=== PATIENT | female | born 2000 | race Caucasian/White ===

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

== ENCOUNTER 2022-07-27 09:43 | Inpatient (IN) ==
[2022-07-27 10:30] LABS: Basophils # (auto) 0.03 K/uL (0-0.2); Basophils % (auto) 0.4 %; Eosinophils # (auto) 0.05 K/uL (0-0.50); Eosinophils % (auto) 0.6 %; Hematocrit (blood only) 33.5 % (34.1-44.9); Hemoglobin 11.6 g/dl (12.0-16.0); Immature Granulocytes # (auto) 0.05 K/uL (0.00-0.02); Immature Granulocytes % (auto) 0.6 %; Lymphocytes # (auto) 2.06 K/uL (1.2-3.4); Lymphocytes % (auto) 24.5 %; Mean Corpuscular Hemoglobin 29.7 pg (25.0-34.0); Mean Corpuscular Hgb Conc 34.6 g/dL (32.0-36.0); Mean Corpuscular Volume 85.9 fL (80.0-100.0); Mean Platelet Volume 10.8 fL (9.4-12.3); Monocytes # (auto) 0.64 K/uL (0.24-0.82); Monocytes % (auto) 7.6 %; Neutrophils # (auto) 5.59 K/uL (1.4-6.5); Neutrophils % (auto) 66.3 %; Platelet Count 258 K/uL (130-400); RDW Coefficient of Variation 12.7 % (11.5-14.5); RDW Standard Deviation 39.2 fL (36.4-46.3); White Blood Count 8.42 K/ul (4.8-10.8)
[2022-07-27 10:52] LABS: Albumin Globulin Ratio 1.1 (0.9-2); BUN Creatinine Ratio 22.5 (10-20); Bilirubin,Total 0.3 mg/dl (0.2-1.0); Calcium 8.4 mg/dl (8.5-10.1); Creatinine Clr Calc Pharmacy 113.2 ml/min; Est GFR (African American) 138.2 ml/min; Est GFR (Non-African American) 119.2 ml/min; Globulin 2.7 gm/dl (2.5-4.0); Total Protein 5.7 gm/dl (6.0-8.3)
[2022-07-27 11:10] LABS: Protein Creatinine Ratio Urine 0.6 (0-0.2); Total Protein Urine Random 40.8 mg/dl (0-11.9)
[2022-07-27] MEDS ORDERED: OXYTOCIN 30 UNITS/500 ML BAG IV PRN ×3 (11:31→20:00)
[2022-07-27] MEDS ORDERED: LIDOCAINE 1% LOCAL 20 ML VIAL INFIL PRN (11:31)
--- NOTE | 2022-07-27 12:03 | History & Physical Report ---
Date of Service July 27, 2022 Assessment & Plan (1) Encounter for induction of labor: Plan: Patient is a 22 yo at 37+2 WGA presenting to labor and delivery originally for BP monitoring and lab work. Upon review of labs, BP, and urine studies, induction of labor was chosen as the best way to proceed. CBC, CMP WNL; significant protein:Cr ratio at 0.6 Blood type: O+, GBS neg, rubella non-immune Plan to start oxytocin and rupture membranes later if necessary Proceed with labor and vaginal delivery (2) Preeclampsia: History of Present Illness Chief Complaint: HTN, concern for PE, induction of labor Primary Care Provider: Joon Damon MD Patient is a 22 yo female currently at 37+2WGA with an ARA as determined by US #1 who is here for HTN, 2+ proteinuria, and headache. She presented to L&D for BP monitoring and PIH labs. Her was complicated by GDM on insulin therapy. No timeable contractions; movement present; denies fluid loss; denies bloody show External FHT and external uterine monitors used; category I tracing; normal FHT variability Had regular appointments with OB. Labs: (01/04/2022) Blood type: O+ Antibody screen: neg Hgb: 11.6 (today) Hct: 33.5% (today) WBC: 8.42 (today) Plt: 258 (today) Rubella: non immune VDRL/RPR: neg Gonorrhea: neg Chlamydia: neg HIV: neg HbSAg: neg GBS: neg Other screens: cf/sma; negative, mln cfdna; low risk, mln Allergies Allergy/AdvReac Type Severity Reaction Status Date / Time No Known Allergies Allergy Verified 07/27/22 09:30 Home Medications Medication Instructions Recorded Confirmed Type prenat.vits,en,yux-ntew-zruch 1 tab PO DAILY 12/12/21 07/27/22 History acetone (urine) test (Ketone Urine #50 ea 05/24/22 07/27/22 Rx Test strips) blood sugar diagnostic (OneTouch #150 ea 05/24/22 07/27/22 Rx Verio test strips) blood-glucose meter (OneTouch #1 ea 05/24/22 07/27/22 Rx Verio Reflect Meter) lancets 33 gauge (OneTouch Delica #150 ea 05/24/22 07/27/22 Rx Lancets) insulin NPH isoph U-100 human 100 5 unit (0.05 mL) subcut QPM #15 mL 06/04/22 07/27/22 Rx unit/mL (3 mL) subcutaneous pen (Novolin N Flexpen) insulin aspart U-100 100 unit/mL See Rx Instructions subcut 06/04/22 07/27/22 Rx (3 mL) subcutaneous pen (Novolog .COMPLEX #15 mL Flexpen U-100 Insulin aspart) pen needle, diabetic 32 gauge x #100 ea 06/04/22 07/27/22 Rx 32" (BD Ultra-Fine Meg Pen Needle) Patient History Medical History Chronic compartment syndrome of lower extremity PONV (postoperative nausea and vomiting) Surgical History H/O wisdom tooth extraction History of arthroscopy of right knee History of fasciotomy bilateral legs History of tonsillectomy and adenoidectomy S/P lateral meniscal repair S/P tonsillectomy Family History Other No family history of adverse response to anesthesia Social History (Updated 07/27/22 @ 10:13 by Elvi George, JACKI) Smoking Status: Never smoker Second Hand Exposure: No; Hx Alcohol Use: No Hx Substance Use: No Preferred Language: Polish Communication Ability: Effective Outdoor Education Teacher Required: No Beliefs That Will Affect Care: None marital status: marital status details: Mitchel (27) [phone] Current Living Situation: Spouse Current Living Situation Comment: lives with spouse, 2 cats, 1 dog, spouse to change litter. 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 Other Information That Helps Us Care for You: No Feels Safe at Home: Yes Safety Concerns: Feels Safe At This Time Assistive Devices: None Review of Systems Denies fever, chills, sweats. Denies SOB, difficulty breathing, chest pain, palpitations, and chest pressure. Denies breast pain. Denies dysuria. Endorses headache but denies changes in vision. Physical Exam Physical Exam: General: Alert and oriented. No acute distress CV: Regular rate and rhythm. No murmurs. Respiratory: CTA bilaterally. No rhonchi, wheezes, or crackles. No increased work of breathing. Abdomen: Gravid; Soft, nontender upon palpation Pelvic: Dilated [_] cm; Effacement [_]; Station [_] per [_] Lower extremities: 2+ bilateral LE edema. No deep calf pain. Chuck's negative bilaterally. Results & Data ([facility]) Vital Signs (Past 12 Hours) Vital Signs Temp Pulse Resp BP 07/27/22 10:13 37 C 16 07/27/22 11:26 69 07/27/22 11:26 125/82 07/27/22 11:11 68 07/27/22 11:11 138/87 07/27/22 10:56 64 07/27/22 10:56 140/87 07/27/22 10:30 18 07/27/22 10:30 18 07/27/22 10:01 62 138/89 Resident Activity Tracking Resident Involvement: Resident Care Provided Care Provided: OB Delivery
--- NOTE | 2022-07-27 12:22 | History & Physical Report ---
Date of Service July 27, 2022 Assessment & Plan (1) Preeclampsia: (2) Encounter for induction of labor: (3) Insulin controlled gestational diabetes mellitus (GDM) during : Plan casper bulb placed for cervical ripening. fetus category one. Will monitor blood sugars hourly and treat based on results, insulin as indicated. pitocin when indicated. Likely arom at some point. anticipate . Monitor s/s of pet. No indication for mag at this point. Admission and Anticipated Discharge Date Admission Date: July 27, 2022 History of Present Illness Chief Complaint: elevated blood pressue, shields Primary Care Provider: Joon Damon MD patient is a 22yowf with iup at 37 2/7 weeks who presents to labor and delivery from the office with an elevated blood pressures. She has had borderline BPs in the office over the last week, 130/90s, isolated 140/80. Was observed in labor and delivery last week and labs normal and pressures better. Documented intermittent shields. Has not been dipping protein. Today notes a shields since midnight, not getting better, notes 01/05. Notes continued swelling but not worsening. notes some sensitivity to light, but no other vision changes. no ruq pain. Had ultrasound today and baby measuring 7# +/-16 oz. Has been fairly well controlled gdm on insulin. and Delivery Plans Rubella non immune *ppx MMR Flu shot given 04/25/22 SB GDM on insulin--started beginning of May. *Wkly NSTs @32wks and Twice wkly @36wks *Serial growth US @28wks *Deliver by [facility] Covid in September, vaccine. OB Labs: Blood Type O Positive 01/04/22 Antibody Screen NEGATIVE 01/04/22 Hemoglobin 11.6 g/dl (12.0-16.0) L 07/27/22 Hematocrit 33.5 % (34.1-44.9) L 07/27/22 Mean Corpuscular Volume 85.9 fL (80.0-100.0) 07/27/22 Platelet Count 258 K/uL (130-400) 07/27/22 Rubella IgG Antibody Non Immune (Immune) L 01/04/22 Rapid Plasma Reagin Nonreactive (Nonreactive) 01/04/22 Hepatitis B Surface Antigen. NON-REACTIVE (NON-REACTIVE) 01/04/22 Hepatitis C Antibody (EIA) NON-REACTIVE (NON-REACTIVE) 01/04/22 HIV (1&2) Ag and Ab Confirmation NON-REACTIVE (NON-REACTIVE) 01/04/22 Glucose 1 Hour 50 gm Load 158 mg/dl (70-130) H 03/01/22 Maternal Serum Alpha Fetoprotein 40.8 ng/mL 03/01/22 OB Optional Labs: Chlamydia trachomatis RNA NOT DETECTED (NOT DETECTED) 01/04/22 Neisseria gonorrhoeae RNA NOT DETECTED (NOT DETECTED) 01/04/22 Alpha Fetoprotein Triple Screen SEE NOTE 03/01/22 Labs Reviewed: cf/sma-negative--mln cfdna-low risk--mln gbs neg Allergies Allergy/AdvReac Type Severity Reaction Status Date / Time No Known Allergies Allergy Verified 07/27/22 09:30 Home Medications Medication Instructions Recorded Confirmed Type prenat.vits,en,mip-lzic-ugugu 1 tab PO DAILY 12/12/21 07/27/22 History acetone (urine) test (Ketone Urine #50 ea 05/24/22 07/27/22 Rx Test strips) blood sugar diagnostic (OneTouch #150 ea 05/24/22 07/27/22 Rx Verio test strips) blood-glucose meter (OneTouch #1 ea 05/24/22 07/27/22 Rx Verio Reflect Meter) lancets 33 gauge (OneTouch Delica #150 ea 05/24/22 07/27/22 Rx Lancets) insulin NPH isoph U-100 human 100 5 unit (0.05 mL) subcut QPM #15 mL 06/04/22 07/27/22 Rx unit/mL (3 mL) subcutaneous pen (Novolin N Flexpen) insulin aspart U-100 100 unit/mL See Rx Instructions subcut 06/04/22 07/27/22 Rx (3 mL) subcutaneous pen (Novolog .COMPLEX #15 mL Flexpen U-100 Insulin aspart) pen needle, diabetic 32 gauge x #100 ea 06/04/22 07/27/22 Rx 5/32" (BD Ultra-Fine Meg Pen Needle) Patient History Medical History Chronic compartment syndrome of lower extremity PONV (postoperative nausea and vomiting) Surgical History H/O wisdom tooth extraction History of arthroscopy of right knee History of fasciotomy bilateral legs History of tonsillectomy and adenoidectomy S/P lateral meniscal repair S/P tonsillectomy Family History Grandmother (Maternal) Breast cancer Mother S/P hysterectomy Other No family history of adverse response to anesthesia Social History Smoking Status: Never smoker Second Hand Exposure: No; Hx Alcohol Use: No Hx Substance Use: No Preferred Language: Maori Communication Ability: Effective Mercantile Reporter Required: No Beliefs That Will Affect Care: None marital status: marital status details: Mitchle (27) [phone] Current Living Situation: Spouse Current Living Situation Comment: lives with spouse, 2 cats, 1 dog, spouse to change litter. 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 speculum placed, casper threaded though cervix, balloon filled with 30cc sterile saline, taped to leg toco--lewis efm--130s with mod variability, accels to 160s, no decels Results & Data ([facility]) Vital Signs (Past 12 Hours) Vital Signs Temp Pulse Resp BP 07/27/22 10:13 37 C 16 07/27/22 11:26 69 07/27/22 11:26 125/82 07/27/22 11:11 68 07/27/22 11:11 138/87 07/27/22 10:56 64 07/27/22 10:56 140/87 07/27/22 10:30 18 07/27/22 10:30 18 07/27/22 10:01 62 138/89 Coding Level of Care Code None Diagnoses Preeclampsia O14.90 Encounter for induction of labor Z34.90 Insulin controlled gestational diabetes mellitus (GDM) during O24.414
[2022-07-27] MEDS: ACETAMINOPHEN 325 MG TAB PO PRN (16:41)
--- NOTE | 2022-07-27 19:21 | Labor Progress Brief Note ---
Date of Service July 27, 2022 Subjective Blood pressures continue to be good. BUTLER about the same, not better/not worse. casper bulb still in. Assessment & Plan (1) Preeclampsia: (2) Encounter for induction of labor: (3) Insulin controlled gestational diabetes mellitus (GDM) during : Plan Patient ate dinner and showered and will now start pit. Pulled on casper a couple of times without success. fetus category one. no worsening s/s of pet. Admission and Anticipated Discharge Date Admission Date: July 27, 2022 Physical Exam Physical Exam: cx--deferred toco--q4-5min efm--130s with mod variability, accels to 150s, no decels Results & Data ([facility]) Vital Signs (Past 12 Hours) Vital Signs Temp Pulse Resp BP 07/27/22 10:13 37 C 16 07/27/22 19:00 37.1 C 07/27/22 19:03 60 07/27/22 19:03 133/78 07/27/22 18:00 18 07/27/22 18:00 18 07/27/22 18:00 65 07/27/22 18:00 126/82 07/27/22 17:00 18 07/27/22 17:00 18 07/27/22 16:30 18 07/27/22 16:30 18 07/27/22 16:00 18 07/27/22 16:00 18 07/27/22 16:06 60 07/27/22 16:06 129/83 07/27/22 15:00 18 07/27/22 15:00 18 07/27/22 15:07 64 07/27/22 15:07 133/80 07/27/22 14:00 18 07/27/22 14:00 36.7 C 18 07/27/22 14:08 66 07/27/22 14:08 131/80 07/27/22 13:08 65 07/27/22 13:08 141/87 H 07/27/22 12:30 18 07/27/22 12:30 18 07/27/22 12:51 68 07/27/22 12:51 129/80 07/27/22 12:00 18 07/27/22 12:00 18 07/27/22 11:00 18 07/27/22 11:00 18 07/27/22 11:30 18 07/27/22 11:30 18 07/27/22 12:35 69 07/27/22 12:35 124/64 07/27/22 11:26 69 07/27/22 11:26 125/82 07/27/22 11:11 68 07/27/22 11:11 138/87 07/27/22 10:56 64 07/27/22 10:56 140/87 07/27/22 10:30 18 07/27/22 10:30 18 07/27/22 10:01 62 138/89 Coding Level of Care Code None Diagnoses Preeclampsia O14.90 Encounter for induction of labor Z34.90 Insulin controlled gestational diabetes mellitus (GDM) during O24.414
[2022-07-27] MEDS: LACTATED RINGER'S 1,000 ML IV PRN (20:04)
[2022-07-28] MEDS ORDERED: LIDOCAINE 2%/EPINEPHRINE 1:200,000 20 ML SDV ONE ×2 (00:21→17:11)
[2022-07-28] MEDS ORDERED: BUPIVACAINE 0.25% 30 ML VIAL ONE ×2 (00:21→09:50)
[2022-07-28] MEDS ORDERED: ePHEDrine sulfate 50 MG/ML AMP ONE (00:21)
[2022-07-28] MEDS ORDERED: fentaNYL 2MCG/ML ROPIVACAINE 1.25MG/ML 100 ML BAG EPI ONE (00:21)
[2022-07-28] MEDS ORDERED: fentaNYL citrate 100 MCG/2 ML VIAL ONE ×2 (00:21→15:25)
[2022-07-28] MEDS: LACTATED RINGER'S 1,000 ML IV PRN ×4 (00:31→15:01)
[2022-07-28] MEDS ORDERED: NALOXONE HCL 0.4 MG/1 ML VIAL/CARP IV PRN ×2 (00:37→17:27)
[2022-07-28] MEDS ORDERED: fentaNYL 2MCG/ML ROPIVACAINE 1.25MG/ML 100 ML BAG EPI PRN (00:37)
[2022-07-28] MEDS ORDERED: NALBUPHINE HCL INJ 10 MG/ML AMP IV PRN ×2 (00:37→17:27)
[2022-07-28] MEDS ORDERED: diphenhydrAMINE 50 MG/ML VIAL IV PRN ×2 (00:37→17:27)
[2022-07-28] MEDS ORDERED: NALOXONE HCL 1 MG in SODIUM CHLORIDE 0.9% 1000ML 1,000 ML IV PRN ×2 (00:37→17:27)
[2022-07-28] MEDS ORDERED: ONDANSETRON INJ 2 MG/ML 2 ML VIAL IV PRN ×3 (00:37→18:21)
[2022-07-28] MEDS ORDERED: ePHEDrine sulfate 50 MG/ML AMP IV PRN ×2 (00:37→17:27)
--- NOTE | 2022-07-28 00:42 | Anesthesiology Consultation ---
Date of Service July 28, 2022 Assessment & Plan Chart Review Chart Review: Patient NOT seen in Pre Admission Testing and Acceptable Risk for Labor Epidural Consults Requested none ASA ASA3 Proposed Anesthesia Anesthesia Type: Labor Epidural and CSE Risk / Benefits Reviewed With: PT / POA / Parent / Guardian, Accepts Plan and Informed Consent Obtained History Height/Weight Height: 5 ft Weight: 78.471 kg Allergies Allergy/AdvReac Type Severity Reaction Status Date / Time No Known Allergies Allergy Verified 07/27/22 09:30 Medications Home Medications Medication Instructions Recorded Confirmed Last Taken prenat.vits,en,[id number] 1 tab PO DAILY 12/12/21 07/27/22 07/26/22 acetone (urine) test (Ketone Urine #50 ea 05/24/22 07/27/22 Unknown Test strips) blood sugar diagnostic (OneTouch #150 ea 05/24/22 07/27/22 Unknown Verio test strips) blood-glucose meter (OneTouch #1 ea 05/24/22 07/27/22 Unknown Verio Reflect Meter) lancets 33 gauge (OneTouch Delica #150 ea 05/24/22 07/27/22 Unknown Lancets) insulin NPH isoph U-100 human 100 5 unit (0.05 mL) subcut QPM #15 mL 06/04/22 07/27/22 07/26/22 unit/mL (3 mL) subcutaneous pen (Novolin N Flexpen) insulin aspart U-100 100 unit/mL See Rx Instructions subcut 06/04/22 07/27/22 07/26/22 (3 mL) subcutaneous pen (Novolog .COMPLEX #15 mL Flexpen U-100 Insulin aspart) pen needle, diabetic 32 gauge x #100 ea 06/04/22 07/27/22 Unknown 32" (BD Ultra-Fine Meg Pen Needle) Active Medications Generic Name Dose Route Start Last Admin Trade Name Freq PRN Reason Stop Dose Admin Acetaminophen 650 mg 07/27/22 16:18 07/27/22 16:41 Acetaminophen 325 Mg Tab PO 08/26/22 16:17 650 mg Q4H PRN Administration Headache Lactated Ringer's 1,000 mls @ 125 mls/hr 07/27/22 11:31 07/28/22 00:31 Lr IV 07/29/22 11:30 999 mls/hr .Q8H PRN Administration L&D Protocol Protocol Oxytocin 30 units in 500 mls @ 8 mls/hr 07/27/22 20:00 07/28/22 00:00 Pitocin IV 07/29/22 19:59 0.48 units/hr .Q24H PRN 8 mls/hr Labor Induction/Augmentation Titration Protocol 0.48 UNITS/HR NPO Date Last Intake of Fluids: 07/27/22 Time Last Intake of Fluids: 23:00 Date Last Intake of Solids: 07/27/22 Time Last Intake of Solids: 13:00 Past Medical History Medical History Chronic compartment syndrome of lower extremity Insulin controlled gestational diabetes mellitus (GDM) during PONV (postoperative nausea and vomiting) Preeclampsia Exercise / Class Metabolic Activity II 4-5 Yardwork/Stairs/Walk up hill Past Family History Family History Grandmother (Maternal) Breast cancer Mother S/P hysterectomy Other No family history of adverse response to anesthesia Past Surgical History Surgical History H/O wisdom tooth extraction History of arthroscopy of right knee History of fasciotomy bilateral legs History of tonsillectomy and adenoidectomy S/P lateral meniscal repair S/P tonsillectomy Past Anesthesia History No Hx of Anesthesia Complications and No Family Hx of Anesthesia Complications History of PONV No Hx of PONV and No Hx of Motion Sickness Social History Smoking Status: Never smoker Hx Alcohol Use: No alcohol intake frequency: a few times a week Hx Substance Use: No substance use type: does not use Review of Systems no chest pain or sob Physical Exam Vital Signs Last Vital Signs Temp 36.8 C 07/27/22 23:00 Pulse 56 L 07/28/22 00:38 Resp 18 07/27/22 23:00 BP 142/84 H 07/28/22 00:02 Pulse Ox 96 07/28/22 00:38 ENMT Mouth: no TMJ abnormality Thyromental Distance: > or= 3.5 Finger Breadths Mallampati Class: II Neck normal visual inspection Respiratory normal respiratory effort Auscultation: lungs clear to auscultation bilaterally Cardiovascular Rate/Rhythm: regular rate and regular rhythm Musculoskeletal Spine: normal cervical ROM Neurologic moves all extremities Psychiatric Orientation: alert and oriented x 3 Testing Laboratory Results 07/27/22 10:12 07/27/22 10:12 07/28/22 07/27/22 07/27/22 00:00 23:04 22:03 POC Glucose 82 89 83 07/27/22 07/27/22 07/27/22 21:03 20:04 19:01 POC Glucose 83 77 82 07/27/22 07/27/22 07/27/22 18:02 17:07 16:05 POC Glucose 89 92 98 07/27/22 07/27/22 07/27/22 15:05 14:03 13:06 POC Glucose 94 117 H 68 L*
--- NOTE | 2022-07-28 02:00 | Labor Progress Brief Note ---
Date of Service July 28, 2022 Subjective comfortable with epidural Assessment & Plan (1) Preeclampsia: (2) Insulin controlled gestational diabetes mellitus (GDM) during : Plan continue current management. fetus category one. anticipate . shields resolved. Admission and Anticipated Discharge Date Admission Date: July 27, 2022 Physical Exam Physical Exam: cx--4/50/-2 arom toco--q2-4min, pit at 8 efm--120s wtih mod variability accels to 160s, no decels Results & Data ([facility]) Vital Signs (Past 12 Hours) Vital Signs Temp Pulse Resp BP Pulse Ox 07/28/22 01:53 94 07/28/22 01:53 63 07/28/22 01:53 60 116/69 07/28/22 01:48 61 94 07/28/22 01:30 18 07/28/22 01:30 18 07/28/22 01:47 59 L 128/73 07/28/22 01:43 95 07/28/22 01:43 58 L 07/28/22 01:43 60 126/62 07/28/22 01:38 66 97 07/28/22 01:37 66 119/64 07/28/22 01:33 62 95 07/28/22 01:32 58 L 123/71 07/28/22 01:29 55 L 126/75 07/28/22 01:28 54 L 96 07/28/22 01:23 64 93 07/28/22 01:22 63 123/61 07/28/22 01:15 18 07/28/22 01:15 18 07/28/22 01:18 56 L 127/73 96 07/28/22 01:13 63 91 07/28/22 01:14 60 120/59 L 07/28/22 01:08 57 L 92 07/28/22 01:06 65 123/62 87 L 07/28/22 01:05 18 07/28/22 01:05 18 07/28/22 01:03 61 140/72 86 L 07/28/22 01:01 57 L 93 07/28/22 01:00 54 L 127/77 07/28/22 00:58 54 L 126/73 95 07/28/22 00:55 67 62 L 07/28/22 00:56 67 119/72 07/28/22 00:53 92 07/28/22 00:53 62 07/28/22 00:53 62 129/78 07/28/22 00:48 79 51 L 07/28/22 00:43 100 07/28/22 00:43 57 L 07/28/22 00:43 59 L 94 07/28/22 00:38 56 L 96 07/28/22 00:33 58 L 100 07/28/22 00:28 52 L 100 07/28/22 00:23 57 L 100 07/28/22 00:18 59 L 100 07/28/22 00:13 63 98 07/28/22 00:02 55 L 142/84 H 07/27/22 23:00 18 07/27/22 23:00 36.8 C 18 07/27/22 23:05 63 07/27/22 23:05 122/74 07/27/22 22:06 58 L 07/27/22 22:06 129/82 07/27/22 21:05 60 07/27/22 21:05 127/84 07/27/22 20:09 59 L 07/27/22 20:09 133/82 07/27/22 19:00 37.1 C 07/27/22 19:00 37.1 C 07/27/22 19:03 60 07/27/22 19:03 133/78 07/27/22 18:00 18 07/27/22 18:00 18 07/27/22 18:00 65 07/27/22 18:00 126/82 07/27/22 17:00 18 07/27/22 17:00 18 07/27/22 16:30 18 07/27/22 16:30 18 07/27/22 16:00 18 07/27/22 16:00 18 07/27/22 16:06 60 07/27/22 16:06 129/83 07/27/22 15:00 18 07/27/22 15:00 18 07/27/22 15:07 64 07/27/22 15:07 133/80 07/27/22 14:00 18 07/27/22 14:00 36.7 C 18 07/27/22 14:08 66 07/27/22 14:08 131/80 Coding Level of Care Code None Diagnoses Preeclampsia O14.90 Insulin controlled gestational diabetes mellitus (GDM) during O24.414
--- NOTE | 2022-07-28 07:28 | Labor Progress Brief Note ---
Date of Service July 28, 2022 Subjective comfortable with epidural. low grade shields 4/10 Assessment & Plan (1) Preeclampsia: (2) Insulin controlled gestational diabetes mellitus (GDM) during : (3) Encounter for induction of labor: Plan iupc placed to help monitor contractions, appear to not be adequate. continue current management. fetus category one. Sugars maintained between 70-120. Admission and Anticipated Discharge Date Admission Date: July 27, 2022 Physical Exam Physical Exam: cx--/-2 toco--difficult tracing, dysfunctional patten at this point. iupc placed, pit at 13 efm--120s with mod variability, accels to 150s, +scalp stim, ?early with some contractions. Results & Data ([facility]) Vital Signs (Past 12 Hours) Vital Signs Temp Pulse Resp BP Pulse Ox 07/28/22 07:23 79 99 07/28/22 07:22 75 121/89 07/28/22 07:18 88 94 07/28/22 07:13 89 98 07/28/22 07:08 114 H 135/84 98 07/28/22 07:03 92 H 96 07/28/22 07:00 18 07/28/22 07:00 18 07/28/22 06:58 68 96 07/28/22 06:53 97 07/28/22 06:53 68 07/28/22 06:53 68 124/79 07/28/22 06:48 74 96 07/28/22 06:43 69 96 07/28/22 06:38 67 97 07/28/22 06:39 71 119/76 07/28/22 06:33 64 97 07/28/22 06:30 18 07/28/22 06:30 18 07/28/22 06:28 76 97 07/28/22 06:23 61 99 07/28/22 06:22 62 114/73 07/28/22 06:18 69 97 07/28/22 06:13 75 97 07/28/22 06:00 18 07/28/22 06:00 36.8 C 18 07/28/22 06:08 65 99 07/28/22 06:03 71 99 07/28/22 05:58 66 97 07/28/22 05:53 65 145/86 H 98 07/28/22 05:48 61 95 07/28/22 05:43 58 L 95 07/28/22 05:38 55 L 141/67 H 95 07/28/22 05:30 18 07/28/22 05:30 18 07/28/22 05:33 59 L 96 07/28/22 05:28 58 L 95 07/28/22 05:23 95 07/28/22 05:23 53 L 07/28/22 05:23 55 L 144/66 H 07/28/22 05:18 58 L 95 07/28/22 05:13 55 L 95 07/28/22 05:08 58 L 95 07/28/22 05:07 58 L 120/70 07/28/22 05:03 57 L 96 07/28/22 05:00 16 07/28/22 05:00 16 07/28/22 04:58 55 L 96 07/28/22 04:53 96 07/28/22 04:53 60 07/28/22 04:53 52 L 125/74 07/28/22 04:48 57 L 96 07/28/22 04:43 65 98 07/28/22 04:30 18 07/28/22 04:30 18 07/28/22 04:38 61 97 07/28/22 04:37 59 L 118/76 07/28/22 04:33 61 99 07/28/22 04:28 60 98 07/28/22 04:23 60 139/71 95 07/28/22 04:18 62 98 07/28/22 04:13 68 98 07/28/22 04:08 36.8 C 54 L 18 95 07/28/22 03:00 18 07/28/22 03:00 18 07/28/22 04:07 52 L 105/58 L 07/28/22 04:03 53 L 95 07/28/22 03:58 58 L 96 07/28/22 03:53 95 07/28/22 03:53 54 L 07/28/22 03:53 51 L 103/54 L 07/28/22 03:48 60 94 07/28/22 03:43 63 93 07/28/22 03:38 62 98/55 L 94 07/28/22 03:33 62 95 07/28/22 03:28 57 L 97 07/28/22 03:23 54 L 96 07/28/22 03:24 59 L 102/55 L 07/28/22 03:18 57 L 95 07/28/22 03:13 56 L 93 07/28/22 03:08 57 L 95 07/28/22 03:07 58 L 106/58 L 07/28/22 03:03 57 L 95 07/28/22 03:02 60 104/58 L 07/28/22 02:58 57 L 100/52 L 95 07/28/22 02:53 62 98 07/28/22 02:52 57 L 103/55 L 07/28/22 02:48 54 L 96 07/28/22 02:49 54 L 102/55 L 07/28/22 02:43 55 L 95 07/28/22 02:42 56 L 103/55 L 07/28/22 02:38 59 L 96 07/28/22 02:37 67 102/55 L 07/28/22 02:30 18 07/28/22 02:30 18 07/28/22 02:30 18 07/28/22 02:30 18 07/28/22 02:33 59 L 100/59 L 95 07/28/22 02:28 55 L 97 07/28/22 02:29 55 L 105/55 L 07/28/22 02:23 96 07/28/22 02:23 64 07/28/22 02:23 60 109/59 L 07/28/22 02:18 96 07/28/22 02:18 60 07/28/22 02:18 58 L 116/57 L 07/28/22 02:13 66 97 07/28/22 02:12 57 L 104/57 L 07/28/22 02:08 60 104/52 L 98 07/28/22 02:00 18 07/28/22 02:00 36.7 C 18 07/28/22 02:03 77 96 07/28/22 02:02 68 114/86 07/28/22 01:58 67 124/58 L 96 07/28/22 01:53 94 07/28/22 01:53 63 07/28/22 01:53 60 116/69 07/28/22 01:48 61 94 07/28/22 01:30 18 07/28/22 01:30 18 07/28/22 01:47 59 L 128/73 07/28/22 01:43 95 07/28/22 01:43 58 L 07/28/22 01:43 60 126/62 07/28/22 01:38 66 97 07/28/22 01:37 66 119/64 07/28/22 01:33 62 95 07/28/22 01:32 58 L 123/71 07/28/22 01:29 55 L 126/75 07/28/22 01:28 54 L 96 07/28/22 01:23 64 93 07/28/22 01:22 63 123/61 07/28/22 01:15 18 07/28/22 01:15 18 07/28/22 01:18 56 L 127/73 96 07/28/22 01:13 63 91 07/28/22 01:14 60 120/59 L 07/28/22 01:08 57 L 92 07/28/22 01:06 65 123/62 87 L 07/28/22 01:05 18 07/28/22 01:05 18 07/28/22 01:03 61 140/72 86 L 07/28/22 01:01 57 L 93 07/28/22 01:00 54 L 127/77 07/28/22 00:58 54 L 126/73 95 07/28/22 00:55 67 62 L 07/28/22 00:56 67 119/72 07/28/22 00:53 92 07/28/22 00:53 62 07/28/22 00:53 62 129/78 07/28/22 00:48 79 51 L 07/28/22 00:43 100 07/28/22 00:43 57 L 07/28/22 00:43 59 L 94 07/28/22 00:38 56 L 96 07/28/22 00:33 58 L 100 07/28/22 00:28 52 L 100 07/28/22 00:23 57 L 100 07/28/22 00:18 59 L 100 07/28/22 00:13 63 98 07/28/22 00:02 55 L 142/84 H 07/27/22 23:00 18 07/27/22 23:00 36.8 C 18 07/27/22 23:05 63 07/27/22 23:05 122/74 07/27/22 22:06 58 L 07/27/22 22:06 129/82 07/27/22 21:05 60 07/27/22 21:05 127/84 07/27/22 20:09 59 L 07/27/22 20:09 133/82 Coding Level of Care Code None Diagnoses Preeclampsia O14.90 Insulin controlled gestational diabetes mellitus (GDM) during O24.414 Encounter for induction of labor Z34.90
[2022-07-28] MEDS: ACETAMINOPHEN 325 MG TAB PO PRN (07:46)
[2022-07-28] MEDS ORDERED: SODIUM CHLORIDE 0.9% INJ 10 ML VIAL ONE (09:51)
--- NOTE | 2022-07-28 10:35 | Labor Progress Brief Note ---
Date of Service July 28, 2022 Subjective Comfortable with epidural. FHT Cat 1 [place] Q 2, adequate MVUs SVE /-1 Continue pitocin, continue labor. Assessment & Plan Admission and Anticipated Discharge Date Admission Date: July 27, 2022 Results & Data ([facility]) Vital Signs (Past 12 Hours) Vital Signs Temp Pulse Resp BP Pulse Ox 07/28/22 10:28 70 97 07/28/22 10:23 81 93 07/28/22 10:22 72 109/63 07/28/22 10:18 71 96 07/28/22 10:13 69 94 07/28/22 10:08 71 94 07/28/22 10:07 68 103/59 L 07/28/22 10:03 65 94 07/28/22 09:58 59 L 94 07/28/22 09:53 71 94 07/28/22 09:52 64 111/61 07/28/22 09:48 64 96 07/28/22 09:43 64 97 07/28/22 09:38 95 07/28/22 09:38 61 07/28/22 09:38 59 L 109/57 L 07/28/22 09:33 62 96 07/28/22 09:28 63 96 07/28/22 09:23 63 96 07/28/22 09:24 74 118/69 07/28/22 09:18 69 98 07/28/22 09:13 65 99 07/28/22 09:08 36.9 C 60 20 139/74 97 07/28/22 09:03 67 97 07/28/22 08:58 64 97 07/28/22 08:53 96 07/28/22 08:53 62 07/28/22 08:53 57 L 20 131/80 07/28/22 08:48 67 98 07/28/22 08:43 62 96 07/28/22 08:38 59 L 139/83 96 07/28/22 08:33 58 L 98 07/28/22 08:28 61 97 07/28/22 08:23 67 98 07/28/22 08:22 63 20 123/67 07/28/22 08:18 67 97 07/28/22 08:13 62 97 07/28/22 08:08 60 117/60 97 07/28/22 08:03 60 96 07/28/22 07:00 18 07/28/22 07:00 36.8 C 18 07/28/22 07:58 67 96 07/28/22 07:56 71 20 120/79 07/28/22 07:53 65 97 07/28/22 07:48 70 97 07/28/22 07:43 67 96 07/28/22 07:38 70 97 07/28/22 07:33 67 96 07/28/22 07:28 91 H 97 07/28/22 07:23 79 99 07/28/22 07:22 75 20 121/89 07/28/22 07:18 88 94 07/28/22 07:13 89 98 07/28/22 07:08 114 H 135/84 98 07/28/22 07:03 92 H 96 07/28/22 07:00 18 07/28/22 07:00 18 07/28/22 06:58 68 96 07/28/22 06:53 97 07/28/22 06:53 68 07/28/22 06:53 68 124/79 07/28/22 06:48 74 96 07/28/22 06:43 69 96 07/28/22 06:38 67 97 07/28/22 06:39 71 119/76 07/28/22 06:33 64 97 07/28/22 06:30 18 07/28/22 06:30 18 07/28/22 06:28 76 97 07/28/22 06:23 61 99 07/28/22 06:22 62 114/73 07/28/22 06:18 69 97 07/28/22 06:13 75 97 07/28/22 06:00 18 07/28/22 06:00 36.8 C 18 07/28/22 06:08 65 99 07/28/22 06:03 71 99 07/28/22 05:58 66 97 07/28/22 05:53 65 145/86 H 98 07/28/22 05:48 61 95 07/28/22 05:43 58 L 95 07/28/22 05:38 55 L 141/67 H 95 07/28/22 05:30 18 07/28/22 05:30 18 07/28/22 05:33 59 L 96 07/28/22 05:28 58 L 95 07/28/22 05:23 95 07/28/22 05:23 53 L 07/28/22 05:23 55 L 144/66 H 07/28/22 05:18 58 L 95 07/28/22 05:13 55 L 95 07/28/22 05:08 58 L 95 07/28/22 05:07 58 L 120/70 07/28/22 05:03 57 L 96 07/28/22 05:00 16 07/28/22 05:00 16 07/28/22 04:58 55 L 96 07/28/22 04:53 96 07/28/22 04:53 60 07/28/22 04:53 52 L 125/74 07/28/22 04:48 57 L 96 07/28/22 04:43 65 98 07/28/22 04:30 18 07/28/22 04:30 18 07/28/22 04:38 61 97 07/28/22 04:37 59 L 118/76 07/28/22 04:33 61 99 07/28/22 04:28 60 98 07/28/22 04:23 60 139/71 95 07/28/22 04:18 62 98 07/28/22 04:13 68 98 07/28/22 04:08 36.8 C 54 L 18 95 07/28/22 03:00 18 07/28/22 03:00 18 07/28/22 04:07 52 L 105/58 L 07/28/22 04:03 53 L 95 07/28/22 03:58 58 L 96 07/28/22 03:53 95 07/28/22 03:53 54 L 07/28/22 03:53 51 L 103/54 L 07/28/22 03:48 60 94 07/28/22 03:43 63 93 07/28/22 03:38 62 98/55 L 94 07/28/22 03:33 62 95 07/28/22 03:28 57 L 97 07/28/22 03:23 54 L 96 07/28/22 03:24 59 L 102/55 L 07/28/22 03:18 57 L 95 07/28/22 03:13 56 L 93 07/28/22 03:08 57 L 95 07/28/22 03:07 58 L 106/58 L 07/28/22 03:03 57 L 95 07/28/22 03:02 60 104/58 L 07/28/22 02:58 57 L 100/52 L 95 07/28/22 02:53 62 98 07/28/22 02:52 57 L 103/55 L 07/28/22 02:48 54 L 96 07/28/22 02:49 54 L 102/55 L 07/28/22 02:43 55 L 95 07/28/22 02:42 56 L 103/55 L 07/28/22 02:38 59 L 96 07/28/22 02:37 67 102/55 L 07/28/22 02:30 18 07/28/22 02:30 18 07/28/22 02:30 18 07/28/22 02:30 18 07/28/22 02:33 59 L 100/59 L 95 07/28/22 02:28 55 L 97 07/28/22 02:29 55 L 105/55 L 07/28/22 02:23 96 07/28/22 02:23 64 07/28/22 02:23 60 109/59 L 07/28/22 02:18 96 07/28/22 02:18 60 07/28/22 02:18 58 L 116/57 L 07/28/22 02:13 66 97 07/28/22 02:12 57 L 104/57 L 07/28/22 02:08 60 104/52 L 98 07/28/22 02:00 18 07/28/22 02:00 36.7 C 18 07/28/22 02:03 77 96 07/28/22 02:02 68 114/86 07/28/22 01:58 67 124/58 L 96 07/28/22 01:53 94 07/28/22 01:53 63 07/28/22 01:53 60 116/69 07/28/22 01:48 61 94 07/28/22 01:30 18 07/28/22 01:30 18 07/28/22 01:47 59 L 128/73 07/28/22 01:43 95 07/28/22 01:43 58 L 07/28/22 01:43 60 126/62 07/28/22 01:38 66 97 07/28/22 01:37 66 119/64 07/28/22 01:33 62 95 07/28/22 01:32 58 L 123/71 07/28/22 01:29 55 L 126/75 07/28/22 01:28 54 L 96 07/28/22 01:23 64 93 07/28/22 01:22 63 123/61 07/28/22 01:15 18 07/28/22 01:15 18 07/28/22 01:18 56 L 127/73 96 07/28/22 01:13 63 91 07/28/22 01:14 60 120/59 L 07/28/22 01:08 57 L 92 07/28/22 01:06 65 123/62 87 L 07/28/22 01:05 18 07/28/22 01:05 18 07/28/22 01:03 61 140/72 86 L 07/28/22 01:01 57 L 93 07/28/22 01:00 54 L 127/77 07/28/22 00:58 54 L 126/73 95 07/28/22 00:55 67 62 L 07/28/22 00:56 67 119/72 07/28/22 00:53 92 07/28/22 00:53 62 07/28/22 00:53 62 129/78 07/28/22 00:48 79 51 L 07/28/22 00:43 100 07/28/22 00:43 57 L 07/28/22 00:43 59 L 94 07/28/22 00:38 56 L 96 07/28/22 00:33 58 L 100 07/28/22 00:28 52 L 100 07/28/22 00:23 57 L 100 07/28/22 00:18 59 L 100 07/28/22 00:13 63 98 07/28/22 00:02 55 L 142/84 H 07/27/22 23:00 18 07/27/22 23:00 36.8 C 18 07/27/22 23:05 63 07/27/22 23:05 122/74 Coding Level of Care Code None
--- NOTE | 2022-07-28 12:46 | Labor Progress Brief Note ---
Date of Service July 28, 2022 Subjective Feeling more pressure with ctx. FHT Cat 2, variable decels with ctx SVE 6/100/0 Will position change, reduce pitocin, monitor FHT. Assessment & Plan Admission and Anticipated Discharge Date Admission Date: July 27, 2022 Results & Data ([facility]) Vital Signs (Past 12 Hours) Vital Signs Temp Pulse Resp BP Pulse Ox 07/28/22 12:43 69 98 07/28/22 12:38 69 126/61 97 07/28/22 12:33 74 97 07/28/22 12:28 64 95 07/28/22 12:24 68 121/69 07/28/22 12:23 73 95 07/28/22 12:18 62 98 07/28/22 12:13 68 97 07/28/22 12:08 98 07/28/22 12:08 65 07/28/22 12:08 63 147/78 H 07/28/22 12:03 65 98 07/28/22 11:58 63 96 07/28/22 11:55 72 129/80 07/28/22 11:53 69 95 07/28/22 11:52 68 126/74 07/28/22 11:48 59 L 96 07/28/22 11:43 60 96 07/28/22 11:38 63 126/72 95 07/28/22 11:33 68 95 07/28/22 11:22 20 07/28/22 11:22 36.9 C 20 07/28/22 11:28 64 96 07/28/22 11:23 72 115/67 97 07/28/22 11:18 75 96 07/28/22 11:13 64 96 07/28/22 11:08 64 116/59 L 96 07/28/22 11:03 75 96 07/28/22 10:58 68 95 07/28/22 10:53 71 96 07/28/22 10:52 76 18 121/55 L 07/28/22 10:48 75 96 07/28/22 10:43 73 95 07/28/22 10:38 99 07/28/22 10:38 74 07/28/22 10:38 73 120/58 L 07/28/22 10:33 79 99 07/28/22 10:28 70 97 07/28/22 10:23 81 93 07/28/22 10:22 72 20 109/63 07/28/22 10:18 71 96 07/28/22 10:13 69 94 07/28/22 10:08 71 94 07/28/22 10:07 68 103/59 L 07/28/22 10:03 65 94 07/28/22 09:58 59 L 94 07/28/22 09:53 71 94 07/28/22 09:52 64 20 111/61 07/28/22 09:48 64 96 07/28/22 09:43 64 97 07/28/22 09:38 95 07/28/22 09:38 61 07/28/22 09:38 59 L 109/57 L 07/28/22 09:33 62 96 07/28/22 09:28 63 96 07/28/22 09:23 63 96 07/28/22 09:24 74 20 118/69 07/28/22 09:18 69 98 07/28/22 09:13 65 99 07/28/22 09:08 36.9 C 60 20 139/74 97 07/28/22 09:03 67 97 07/28/22 08:58 64 97 07/28/22 08:53 96 07/28/22 08:53 62 07/28/22 08:53 57 L 20 131/80 07/28/22 08:48 67 98 07/28/22 08:43 62 96 07/28/22 08:38 59 L 139/83 96 07/28/22 08:33 58 L 98 07/28/22 08:28 61 97 07/28/22 08:23 67 98 07/28/22 08:22 63 20 123/67 07/28/22 08:18 67 97 07/28/22 08:13 62 97 07/28/22 08:08 60 117/60 97 07/28/22 08:03 60 96 07/28/22 07:00 18 07/28/22 07:00 36.8 C 18 07/28/22 07:58 67 96 07/28/22 07:56 71 20 120/79 07/28/22 07:53 65 97 07/28/22 07:48 70 97 07/28/22 07:43 67 96 07/28/22 07:38 70 97 07/28/22 07:33 67 96 07/28/22 07:28 91 H 97 07/28/22 07:23 79 99 07/28/22 07:22 75 20 121/89 07/28/22 07:18 88 94 07/28/22 07:13 89 98 07/28/22 07:08 114 H 135/84 98 07/28/22 07:03 92 H 96 07/28/22 07:00 18 07/28/22 07:00 18 07/28/22 06:58 68 96 07/28/22 06:53 97 07/28/22 06:53 68 07/28/22 06:53 68 124/79 07/28/22 06:48 74 96 07/28/22 06:43 69 96 07/28/22 06:38 67 97 07/28/22 06:39 71 119/76 07/28/22 06:33 64 97 07/28/22 06:30 18 07/28/22 06:30 18 07/28/22 06:28 76 97 07/28/22 06:23 61 99 07/28/22 06:22 62 114/73 07/28/22 06:18 69 97 07/28/22 06:13 75 97 07/28/22 06:00 18 07/28/22 06:00 36.8 C 18 07/28/22 06:08 65 99 07/28/22 06:03 71 99 07/28/22 05:58 66 97 07/28/22 05:53 65 145/86 H 98 07/28/22 05:48 61 95 07/28/22 05:43 58 L 95 07/28/22 05:38 55 L 141/67 H 95 07/28/22 05:30 18 07/28/22 05:30 18 07/28/22 05:33 59 L 96 07/28/22 05:28 58 L 95 07/28/22 05:23 95 07/28/22 05:23 53 L 07/28/22 05:23 55 L 144/66 H 07/28/22 05:18 58 L 95 07/28/22 05:13 55 L 95 07/28/22 05:08 58 L 95 07/28/22 05:07 58 L 120/70 07/28/22 05:03 57 L 96 07/28/22 05:00 16 07/28/22 05:00 16 07/28/22 04:58 55 L 96 07/28/22 04:53 96 07/28/22 04:53 60 07/28/22 04:53 52 L 125/74 07/28/22 04:48 57 L 96 07/28/22 04:43 65 98 07/28/22 04:30 18 07/28/22 04:30 18 07/28/22 04:38 61 97 07/28/22 04:37 59 L 118/76 07/28/22 04:33 61 99 07/28/22 04:28 60 98 07/28/22 04:23 60 139/71 95 07/28/22 04:18 62 98 07/28/22 04:13 68 98 07/28/22 04:08 36.8 C 54 L 18 95 07/28/22 03:00 18 07/28/22 03:00 18 07/28/22 04:07 52 L 105/58 L 07/28/22 04:03 53 L 95 07/28/22 03:58 58 L 96 07/28/22 03:53 95 07/28/22 03:53 54 L 07/28/22 03:53 51 L 103/54 L 07/28/22 03:48 60 94 07/28/22 03:43 63 93 07/28/22 03:38 62 98/55 L 94 07/28/22 03:33 62 95 07/28/22 03:28 57 L 97 07/28/22 03:23 54 L 96 07/28/22 03:24 59 L 102/55 L 07/28/22 03:18 57 L 95 07/28/22 03:13 56 L 93 07/28/22 03:08 57 L 95 07/28/22 03:07 58 L 106/58 L 07/28/22 03:03 57 L 95 07/28/22 03:02 60 104/58 L 07/28/22 02:58 57 L 100/52 L 95 07/28/22 02:53 62 98 07/28/22 02:52 57 L 103/55 L 07/28/22 02:48 54 L 96 07/28/22 02:49 54 L 102/55 L 07/28/22 02:43 55 L 95 07/28/22 02:42 56 L 103/55 L 07/28/22 02:38 59 L 96 07/28/22 02:37 67 102/55 L 07/28/22 02:30 18 07/28/22 02:30 18 07/28/22 02:30 18 07/28/22 02:30 18 07/28/22 02:33 59 L 100/59 L 95 07/28/22 02:28 55 L 97 07/28/22 02:29 55 L 105/55 L 07/28/22 02:23 96 07/28/22 02:23 64 07/28/22 02:23 60 109/59 L 07/28/22 02:18 96 07/28/22 02:18 60 07/28/22 02:18 58 L 116/57 L 07/28/22 02:13 66 97 07/28/22 02:12 57 L 104/57 L 07/28/22 02:08 60 104/52 L 98 07/28/22 02:00 18 07/28/22 02:00 36.7 C 18 07/28/22 02:03 77 96 07/28/22 02:02 68 114/86 07/28/22 01:58 67 124/58 L 96 07/28/22 01:53 94 07/28/22 01:53 63 07/28/22 01:53 60 116/69 07/28/22 01:48 61 94 07/28/22 01:30 18 07/28/22 01:30 18 07/28/22 01:47 59 L 128/73 07/28/22 01:43 95 07/28/22 01:43 58 L 07/28/22 01:43 60 126/62 07/28/22 01:38 66 97 07/28/22 01:37 66 119/64 07/28/22 01:33 62 95 07/28/22 01:32 58 L 123/71 07/28/22 01:29 55 L 126/75 07/28/22 01:28 54 L 96 07/28/22 01:23 64 93 07/28/22 01:22 63 123/61 07/28/22 01:15 18 07/28/22 01:15 18 07/28/22 01:18 56 L 127/73 96 07/28/22 01:13 63 91 07/28/22 01:14 60 120/59 L 07/28/22 01:08 57 L 92 07/28/22 01:06 65 123/62 87 L 07/28/22 01:05 18 07/28/22 01:05 18 07/28/22 01:03 61 140/72 86 L 07/28/22 01:01 57 L 93 07/28/22 01:00 54 L 127/77 07/28/22 00:58 54 L 126/73 95 07/28/22 00:55 67 62 L 07/28/22 00:56 67 119/72 07/28/22 00:53 92 07/28/22 00:53 62 07/28/22 00:53 62 129/78 07/28/22 00:48 79 51 L Coding Level of Care Code None
[2022-07-28] MEDS ORDERED: NURSING L&D Epidural Breakthrough Pain Update ONE (13:46)
--- NOTE | 2022-07-28 14:01 | Labor Progress Brief Note ---
Date of Service July 28, 2022 Subjective Patient was very uncomfortable, anesthesia re-dosed epidural. FHT improved with position changes and stopping pitocin. Cale Q 3-4 SVE 6/100/0 Discussed with patient that will try to restart pitocin to continue in labor. Has not made change at this point since last exam. Assessment & Plan Admission and Anticipated Discharge Date Admission Date: July 27, 2022 Results & Data ([facility]) Vital Signs (Past 12 Hours) Vital Signs Temp Pulse Resp BP Pulse Ox 07/28/22 13:58 86 98 07/28/22 13:53 78 100 07/28/22 13:51 68 121/64 07/28/22 13:48 68 100 07/28/22 13:49 62 128/63 07/28/22 13:47 76 115/55 L 07/28/22 13:45 71 130/62 07/28/22 13:43 83 123/59 L 97 07/28/22 13:41 96 H 109/65 07/28/22 13:38 83 94 07/28/22 13:33 72 96 07/28/22 13:28 78 100 07/28/22 13:23 74 96 07/28/22 13:22 67 135/73 07/28/22 13:18 70 99 07/28/22 13:13 82 92 07/28/22 13:08 72 97 07/28/22 13:09 70 143/73 H 07/28/22 13:00 18 07/28/22 13:00 37.0 C 18 07/28/22 13:03 64 96 07/28/22 12:58 66 96 07/28/22 12:53 93 07/28/22 12:53 68 07/28/22 12:53 74 171/83 H 07/28/22 12:48 66 98 07/28/22 12:43 69 98 07/28/22 12:38 69 126/61 97 07/28/22 12:33 74 97 07/28/22 12:28 64 95 07/28/22 12:24 68 121/69 07/28/22 12:23 73 95 07/28/22 12:18 62 98 07/28/22 12:13 68 97 07/28/22 12:08 98 07/28/22 12:08 65 07/28/22 12:08 63 147/78 H 07/28/22 12:03 65 98 07/28/22 11:58 63 96 07/28/22 11:55 72 129/80 07/28/22 11:53 69 95 07/28/22 11:52 68 126/74 07/28/22 11:48 59 L 96 07/28/22 11:43 60 96 07/28/22 11:38 63 126/72 95 07/28/22 11:33 68 95 07/28/22 11:22 20 07/28/22 11:22 36.9 C 20 07/28/22 11:28 64 96 07/28/22 11:23 72 115/67 97 07/28/22 11:18 75 96 07/28/22 11:13 64 96 07/28/22 11:08 64 116/59 L 96 07/28/22 11:03 75 96 07/28/22 10:58 68 95 07/28/22 10:53 71 96 07/28/22 10:52 76 18 121/55 L 07/28/22 10:48 75 96 07/28/22 10:43 73 95 07/28/22 10:38 99 07/28/22 10:38 74 07/28/22 10:38 73 120/58 L 07/28/22 10:33 79 99 07/28/22 10:28 70 97 07/28/22 10:23 81 93 07/28/22 10:22 72 20 109/63 07/28/22 10:18 71 96 07/28/22 10:13 69 94 07/28/22 10:08 71 94 07/28/22 10:07 68 103/59 L 07/28/22 10:03 65 94 07/28/22 09:58 59 L 94 07/28/22 09:53 71 94 07/28/22 09:52 64 20 111/61 07/28/22 09:48 64 96 07/28/22 09:43 64 97 07/28/22 09:38 95 07/28/22 09:38 61 07/28/22 09:38 59 L 109/57 L 07/28/22 09:33 62 96 07/28/22 09:28 63 96 07/28/22 09:23 63 96 12/31/22 09:24 74 20 118/69 12/31/22 09:18 69 98 07/28/22 09:13 65 99 07/28/22 09:08 36.9 C 60 20 139/74 97 07/28/22 09:03 67 97 07/28/22 08:58 64 97 07/28/22 08:53 96 07/28/22 08:53 62 07/28/22 08:53 57 L 20 131/80 07/28/22 08:48 67 98 07/28/22 08:43 62 96 07/28/22 08:38 59 L 139/83 96 07/28/22 08:33 58 L 98 07/28/22 08:28 61 97 07/28/22 08:23 67 98 07/28/22 08:22 63 20 123/67 07/28/22 08:18 67 97 07/28/22 08:13 62 97 07/28/22 08:08 60 117/60 97 07/28/22 08:03 60 96 07/28/22 07:00 18 07/28/22 07:00 36.8 C 18 07/28/22 07:58 67 96 07/28/22 07:56 71 20 120/79 07/28/22 07:53 65 97 07/28/22 07:48 70 97 07/28/22 07:43 67 96 07/28/22 07:38 70 97 07/28/22 07:33 67 96 07/28/22 07:28 91 H 97 07/28/22 07:23 79 99 07/28/22 07:22 75 20 121/89 07/28/22 07:18 88 94 07/28/22 07:13 89 98 07/28/22 07:08 114 H 135/84 98 07/28/22 07:03 92 H 96 07/28/22 07:00 18 07/28/22 07:00 18 07/28/22 06:58 68 96 07/28/22 06:53 97 07/28/22 06:53 68 07/28/22 06:53 68 124/79 07/28/22 06:48 74 96 07/28/22 06:43 69 96 07/28/22 06:38 67 97 07/28/22 06:39 71 119/76 07/28/22 06:33 64 97 07/28/22 06:30 18 07/28/22 06:30 18 07/28/22 06:28 76 97 07/28/22 06:23 61 99 07/28/22 06:22 62 114/73 07/28/22 06:18 69 97 07/28/22 06:13 75 97 07/28/22 06:00 18 07/28/22 06:00 36.8 C 18 07/28/22 06:08 65 99 07/28/22 06:03 71 99 07/28/22 05:58 66 97 07/28/22 05:53 65 145/86 H 98 07/28/22 05:48 61 95 07/28/22 05:43 58 L 95 07/28/22 05:38 55 L 141/67 H 95 07/28/22 05:30 18 07/28/22 05:30 18 07/28/22 05:33 59 L 96 07/28/22 05:28 58 L 95 07/28/22 05:23 95 07/28/22 05:23 53 L 07/28/22 05:23 55 L 144/66 H 07/28/22 05:18 58 L 95 07/28/22 05:13 55 L 95 07/28/22 05:08 58 L 95 07/28/22 05:07 58 L 120/70 07/28/22 05:03 57 L 96 07/28/22 05:00 16 07/28/22 05:00 16 07/28/22 04:58 55 L 96 07/28/22 04:53 96 07/28/22 04:53 60 07/28/22 04:53 52 L 125/74 07/28/22 04:48 57 L 96 07/28/22 04:43 65 98 07/28/22 04:30 18 07/28/22 04:30 18 07/28/22 04:38 61 97 07/28/22 04:37 59 L 118/76 07/28/22 04:33 61 99 07/28/22 04:28 60 98 07/28/22 04:23 60 139/71 95 07/28/22 04:18 62 98 07/28/22 04:13 68 98 07/28/22 04:08 36.8 C 54 L 18 95 07/28/22 03:00 18 07/28/22 03:00 18 07/28/22 04:07 52 L 105/58 L 07/28/22 04:03 53 L 95 07/28/22 03:58 58 L 96 07/28/22 03:53 95 07/28/22 03:53 54 L 07/28/22 03:53 51 L 103/54 L 07/28/22 03:48 60 94 07/28/22 03:43 63 93 07/28/22 03:38 62 98/55 L 94 07/28/22 03:33 62 95 07/28/22 03:28 57 L 97 07/28/22 03:23 54 L 96 07/28/22 03:24 59 L 102/55 L 07/28/22 03:18 57 L 95 07/28/22 03:13 56 L 93 07/28/22 03:08 57 L 95 07/28/22 03:07 58 L 106/58 L 07/28/22 03:03 57 L 95 07/28/22 03:02 60 104/58 L 07/28/22 02:58 57 L 100/52 L 95 07/28/22 02:53 62 98 07/28/22 02:52 57 L 103/55 L 07/28/22 02:48 54 L 96 07/28/22 02:49 54 L 102/55 L 07/28/22 02:43 55 L 95 07/28/22 02:42 56 L 103/55 L 07/28/22 02:38 59 L 96 07/28/22 02:37 67 102/55 L 07/28/22 02:30 18 07/28/22 02:30 18 07/28/22 02:30 18 07/28/22 02:30 18 07/28/22 02:33 59 L 100/59 L 95 07/28/22 02:28 55 L 97 07/28/22 02:29 55 L 105/55 L 07/28/22 02:23 96 07/28/22 02:23 64 07/28/22 02:23 60 109/59 L 07/28/22 02:18 96 07/28/22 02:18 60 07/28/22 02:18 58 L 116/57 L 07/28/22 02:13 66 97 07/28/22 02:12 57 L 104/57 L 07/28/22 02:08 60 104/52 L 98 07/28/22 02:03 77 96 07/28/22 02:02 68 114/86 Coding Level of Care Code None
[2022-07-28] MEDS ORDERED: CITRIC ACID/SODIUM CITRATE 15 ML UDC ONE (15:22)
--- NOTE | 2022-07-28 15:25 | History & Physical Bridge Note ---
Date of Service July 28, 2022 History & Physical Bridge Note I have examined the patient, reviewed the History & Physical and in the interval since the performance of the History & Physical I have noted the following changes of clinical significance: no changes noted FHT tachycardic, unable to restart pitocin. Patient's cervix remains unchanged. I have recommended delivery by section - she agrees. We reviewed informed consent, questions answered. Will proceed to OR. Ordered antibiotics: ancef 2g, azithro 500mg.
[2022-07-28] MEDS ORDERED: AZITHROMYCIN 500 MG in DEXTROSE 5% 250 ML IV ONE (15:30)
[2022-07-28] MEDS ORDERED: ceFAZolin 2000MG 2,000 MG/15 ML SYR IV STA (15:33)
[2022-07-28] MEDS ORDERED: MoRPHine SULFATE PF 1 MG/ML 10 ML AMP/VIAL ONE (16:22)
[2022-07-28 16:44] LABS: Base Excess Cord Venous Blood -2.2 mEq/L (-7.7-1.9); Cord Venous Blood HCO3 23 mmol/L (18.4-26.8); Cord Venous Blood PCO2 38 mmHg (30.4-57.2); Cord Venous Blood PO2 33 mmHg (14.1-43.3); Cord Venous Blood pH 7.38 (7.20-7.44)
[2022-07-28 16:45] LABS: Base Excess Cord Arterial Bld -3.6 mEq/L (-9-1.8); CO2 Cord Arterial Blood 49 mmHg (39.1-73.5); HCO3 Cord Arterial Blood 24 mmol/L (19.7-28.5); Oxygen Sat Cord Arterial Blood < 60.0 % (<60); PO2 Cord Arterial Blood 21 mmHg (4.1-31.7); pH Cord Arterial Blood 7.29 (7.1-7.38)
--- NOTE | 2022-07-28 16:56 | Operative Report ---
PG Post Operative Report Pre & Post Diagnosis Operation Date: 07/28/22 16:00 Pre-Op Diagnosis: 1. Failure to Dilate 2. Intolerance to Labor 3. Pre-eclampsia without severe features Post-Op Diagnosis: Same; Delivery of a live boy at 1612 I identified the patient and participated in the time-out.: Yes Procedure Operation Date: 07/28/22 16:00 Actual Procedures Primary Low Transverse Section in LD; for the of a live boy at 1612 - Harriett Rodriguez DO Surgeon Harriett Rodriguez DO Shredding Floor Equipment Operator Misael Redd RN Estimated Blood Loss 600 Findings Consistent with Post-Op Diagnosis Viable male , Apgars 8/9. Weight pending, please see nursery records. Normal appearing uterus, fallopian tubes, ovaries. Specimens placenta, cord blood, cord gas Drains casper clear yellow Anesthesia Type Labor Epidural Complications none Disposition Accompanied Patient To Recovery: No Disposition: L&D Indications 22yo @ 37 3/7, progressed to 5cm and then labor stalled. Pitocin needed to be stopped d/t FHT with persistent variable decelerations. Cat 2 FHT with variable decels and tachycardia continued even after resuscitative measures. Decision was made to proceed to OR for section. Patient agreed, consented. Then patient's temperature became elevated and diagnosis of ch orioamnionitis was added. Description of Procedure The patient was seen in her labor and delivery room, risks benefits and alternatives to surgery were reviewed. Informed consent obtained. Questions were answered. She was taken to the operating room, spinal anesthesia was administered. She was then prepared and draped in the usual sterile fashion in the supine position with a leftward tilt. Timeout was confirmed. A Pfannenstiel skin incision was made with a scalpel, and carried through to the underlying layer of fascia. Fascia was nicked at midline, and this incision was extended bilaterally. The superior aspect of the fascial incision was grasped with Chelsea clamps x2, elevated off the underlying rectus abdominis muscles, and dissected sharply and bluntly. In similar fashion, the inferior aspect of the fascial incision was dissected. The rectus abdominis muscles were , and the peritoneum was entered bluntly digitally. This was extended bilaterally. The bladder flap was taken down carefully using Metzenbaum scissors. Using a new scalpel, a low transverse uterine incision was created. No amniotic fluid noted. The infant was delivered from a cephalic presentation. The head delivered, followed by shoulders and body. Tight nuchal cord x 1, reduced. Spontaneous cry on the field. The cord was doubly clamped and cut, and the infant was handed off to the waiting polymerization oven operator. A segment was retained for cord gases. Cord blood was obtained. The placenta was delivered spontaneously intact. The uterus was exteriorized, and cleared of all clots and debris. The hysterotomy incision was reapproximated using 0 Vicryl in a running locked stitch. A second layer of the same suture was used to imbricate the incision. Posterior uterus was evaluated and normal. The uterus was returned to the abdomen, and gutters were cleared of clots and debris. Excellent hemostasis was observed. The fascial incision was reapproximated using 0 Vicryl in a running stitch. The subcutaneous tissue was irrigated, and reapproximated using 2-0 plain gut in a running stitch. The skin was reapproximated using 4-0 Vicryl in a running subcuticular stitch. Steri-Strips and a bandage were applied. The patient tolerated the procedure well, and will be taken to the recovery area in stable and good condition. Sponge, instrument, needle counts correct x 2. I attest to the content of the Intraoperative Record and any orders documented therein. Any exceptions are noted below. OB Procedure Charges 97443
[2022-07-28] MEDS ORDERED: CARBOPROST TROMETHAMINE 250 MCG/ML AMPUL IM ONE (17:00)
[2022-07-28] MEDS ORDERED: PHENYLEPHRINE 100MCG/ML 5ML SYR ONE (17:10)
[2022-07-28] MEDS ORDERED: ONDANSETRON INJ 2 MG/ML 2 ML VIAL ONE (17:10)
[2022-07-28] MEDS ORDERED: OXYTOCIN 10 UNITS/ML 10ML VIAL ONE (17:10)
[2022-07-28] MEDS ORDERED: CARBOPROST TROMETHAMINE 250 MCG/ML AMPUL ONE (17:11)
[2022-07-28] MEDS ORDERED: GENTAMICIN CONSULT ACTIVE PRN (17:11)
[2022-07-28] MEDS ORDERED: GENTAMICIN SULFATE 300 MG in DEXTROSE 5% 100 ML IV SCH (17:15)
[2022-07-28] MEDS ORDERED: LACTATED RINGER'S 500 ML IV PRN (17:27)
[2022-07-28] MEDS ORDERED: HYDROmorphone INJ 0.5 MG/0.5 ML SYR IV PRN (17:27)
[2022-07-28] MEDS ORDERED: NALOXONE HCL 0.08 MG in SYRINGE 1.8 ML IV PRN (17:27)
[2022-07-28] MEDS ORDERED: MoRPHine SULFATE PF 1 MG/ML 10 ML AMP/VIAL INT SPINAL ONE (17:27)
[2022-07-28] MEDS ORDERED: SODIUM CHLORIDE 0.9% 1000ML 1,000 ML IV SCH (17:30)
[2022-07-28] MEDS ORDERED: NO NARCOTICS OR SEDATIVES SCH (17:30)
[2022-07-28] MEDS ORDERED: DC INTRASPINAL MORPHINE SCH (17:30)
--- NOTE | 2022-07-28 17:57 | Anesthesiology Progress Note ---
Date of Service July 28, 2022 Anesthesia Post Procedure Vital Signs Vital Signs: Temp Pulse Resp BP Pulse Ox 07/28/22 17:32 20 07/28/22 17:22 20 07/28/22 17:02 37.7 C H 20 07/28/22 15:38 38.1 C H 20 07/28/22 17:51 94 H 122/62 97 07/28/22 17:46 92 H 97 07/28/22 17:43 95 H 119/63 07/28/22 17:41 99 H 96 07/28/22 17:36 95 H 93 07/28/22 17:31 99 H 95 07/28/22 17:32 99 H 105/59 L 94 07/28/22 17:26 98 H 94 07/28/22 17:25 100 H 94 07/28/22 17:22 100 H 103/49 L 07/28/22 17:21 98 H 95 07/28/22 17:16 97 H 97 07/28/22 17:11 103 H 99 07/28/22 17:12 96 H 126/57 L 07/28/22 17:06 97 H 96 07/28/22 17:07 98 H 91 07/28/22 17:02 90 116/65 07/28/22 17:01 94 H 97 07/28/22 15:37 73 162/79 H 07/28/22 15:21 83 162/81 H 07/28/22 15:13 85 95 07/28/22 15:08 86 96 07/28/22 15:06 81 152/88 H 07/28/22 15:03 72 97 07/28/22 14:58 80 98 07/28/22 14:53 91 H 96 07/28/22 14:52 80 152/92 H 07/28/22 14:48 82 97 07/28/22 14:44 20 07/28/22 14:44 37.8 C H 20 07/28/22 14:43 80 99 07/28/22 14:38 72 98 07/28/22 14:36 67 158/81 H 07/28/22 14:33 77 97 07/28/22 14:28 85 100 07/28/22 14:23 66 100 07/28/22 14:21 60 161/88 H 07/28/22 14:18 62 100 07/28/22 14:13 65 100 07/28/22 14:08 71 100 07/28/22 14:07 68 20 133/76 07/28/22 14:03 76 100 07/28/22 13:58 86 98 07/28/22 13:53 78 100 07/28/22 13:51 68 121/64 07/28/22 13:48 68 100 07/28/22 13:49 62 128/63 07/28/22 13:47 76 115/55 L 07/28/22 13:45 71 130/62 07/28/22 13:43 83 123/59 L 97 07/28/22 13:41 96 H 20 109/65 07/28/22 13:38 83 94 07/28/22 13:33 72 96 07/28/22 13:28 78 100 07/28/22 13:23 74 96 07/28/22 13:22 67 135/73 07/28/22 13:18 70 99 07/28/22 13:13 82 92 07/28/22 13:08 72 97 07/28/22 13:09 70 143/73 H 07/28/22 13:00 18 07/28/22 13:00 37.0 C 18 07/28/22 13:03 64 96 07/28/22 12:58 66 96 07/28/22 12:53 93 07/28/22 12:53 68 07/28/22 12:53 74 171/83 H 07/28/22 12:48 66 98 07/28/22 12:43 69 98 07/28/22 12:38 69 126/61 97 07/28/22 12:33 74 97 07/28/22 12:28 64 95 07/28/22 12:24 68 20 121/69 07/28/22 12:23 73 95 07/28/22 12:18 62 98 07/28/22 12:13 68 97 07/28/22 12:08 98 07/28/22 12:08 65 07/28/22 12:08 63 147/78 H 07/28/22 12:03 65 98 07/28/22 11:58 63 96 07/28/22 11:55 72 18 129/80 07/28/22 11:53 69 95 07/28/22 11:52 68 126/74 07/28/22 11:48 59 L 96 07/28/22 11:43 60 96 07/28/22 11:38 63 126/72 95 07/28/22 11:33 68 95 07/28/22 11:22 20 07/28/22 11:22 36.9 C 20 07/28/22 11:28 64 96 07/28/22 11:23 72 115/67 97 07/28/22 11:18 75 96 07/28/22 11:13 64 96 07/28/22 11:08 64 116/59 L 96 07/28/22 11:03 75 96 07/28/22 10:58 68 95 07/28/22 10:53 71 96 07/28/22 10:52 76 18 121/55 L 07/28/22 10:48 75 96 07/28/22 10:43 73 95 07/28/22 10:38 99 07/28/22 10:38 74 07/28/22 10:38 73 120/58 L 07/28/22 10:33 79 99 07/28/22 10:28 70 97 07/28/22 10:23 81 93 07/28/22 10:22 72 20 109/63 07/28/22 10:18 71 96 07/28/22 10:13 69 94 07/28/22 10:08 71 94 07/28/22 10:07 68 103/59 L 07/28/22 10:03 65 94 07/28/22 09:58 59 L 94 07/28/22 09:53 71 94 07/28/22 09:52 64 20 111/61 07/28/22 09:48 64 96 07/28/22 09:43 64 97 07/28/22 09:38 95 07/28/22 09:38 61 07/28/22 09:38 59 L 109/57 L 07/28/22 09:33 62 96 07/28/22 09:28 63 96 07/28/22 09:23 63 96 07/28/22 09:24 74 20 118/69 07/28/22 09:18 69 98 07/28/22 09:13 65 99 07/28/22 09:08 36.9 C 60 20 139/74 97 07/28/22 09:03 67 97 07/28/22 08:58 64 97 07/28/22 08:53 96 07/28/22 08:53 62 07/28/22 08:53 57 L 20 131/80 07/28/22 08:48 67 98 07/28/22 08:43 62 96 07/28/22 08:38 59 L 139/83 96 07/28/22 08:33 58 L 98 07/28/22 08:28 61 97 07/28/22 08:23 67 98 07/28/22 08:22 63 20 123/67 07/28/22 08:18 67 97 07/28/22 08:13 62 97 07/28/22 08:08 60 117/60 97 07/28/22 08:03 60 96 07/28/22 07:00 18 07/28/22 07:00 36.8 C 18 07/28/22 07:58 67 96 07/28/22 07:56 71 20 120/79 07/28/22 07:53 65 97 07/28/22 07:48 70 97 07/28/22 07:43 67 96 07/28/22 07:38 70 97 07/28/22 07:33 67 96 07/28/22 07:28 91 H 97 07/28/22 07:23 79 99 07/28/22 07:22 75 20 121/89 07/28/22 07:18 88 94 07/28/22 07:13 89 98 07/28/22 07:08 114 H 135/84 98 07/28/22 07:03 92 H 96 07/28/22 07:00 18 07/28/22 07:00 18 07/28/22 06:58 68 96 07/28/22 06:53 97 07/28/22 06:53 68 07/28/22 06:53 68 124/79 07/28/22 06:48 74 96 07/28/22 06:43 69 96 07/28/22 06:38 67 97 07/28/22 06:39 71 119/76 07/28/22 06:33 64 97 07/28/22 06:30 18 07/28/22 06:30 18 07/28/22 06:28 76 97 07/28/22 06:23 61 99 07/28/22 06:22 62 114/73 07/28/22 06:18 69 97 07/28/22 06:13 75 97 07/28/22 06:00 18 07/28/22 06:00 36.8 C 18 07/28/22 06:08 65 99 07/28/22 06:03 71 99 07/28/22 05:58 66 97 07/28/22 05:53 65 145/86 H 98 07/28/22 05:48 61 95 07/28/22 05:43 58 L 95 07/28/22 05:38 55 L 141/67 H 95 07/28/22 05:30 18 07/28/22 05:30 18 07/28/22 05:33 59 L 96 07/28/22 05:28 58 L 95 07/28/22 05:23 95 07/28/22 05:23 53 L 07/28/22 05:23 55 L 144/66 H 07/28/22 05:18 58 L 95 07/28/22 05:13 55 L 95 07/28/22 05:08 58 L 95 07/28/22 05:07 58 L 120/70 07/28/22 05:03 57 L 96 07/28/22 05:00 16 07/28/22 05:00 16 07/28/22 04:58 55 L 96 07/28/22 04:53 96 07/28/22 04:53 60 07/28/22 04:53 52 L 125/74 07/28/22 04:48 57 L 96 07/28/22 04:43 65 98 07/28/22 04:30 18 07/28/22 04:30 18 07/28/22 04:38 61 97 07/28/22 04:37 59 L 118/76 07/28/22 04:33 61 99 07/28/22 04:28 60 98 07/28/22 04:23 60 139/71 95 07/28/22 04:18 62 98 07/28/22 04:13 68 98 07/28/22 04:08 36.8 C 54 L 18 95 07/28/22 03:00 18 07/28/22 03:00 18 07/28/22 04:07 52 L 105/58 L 07/28/22 04:03 53 L 95 07/28/22 03:58 58 L 96 07/28/22 03:53 95 07/28/22 03:53 54 L 07/28/22 03:53 51 L 103/54 L 07/28/22 03:48 60 94 07/28/22 03:43 63 93 07/28/22 03:38 62 98/55 L 94 07/28/22 03:33 62 95 07/28/22 03:28 57 L 97 07/28/22 03:23 54 L 96 07/28/22 03:24 59 L 102/55 L 07/28/22 03:18 57 L 95 07/28/22 03:13 56 L 93 07/28/22 03:08 57 L 95 07/28/22 03:07 58 L 106/58 L 07/28/22 03:03 57 L 95 07/28/22 03:02 60 104/58 L 07/28/22 02:58 57 L 100/52 L 95 07/28/22 02:53 62 98 07/28/22 02:52 57 L 103/55 L 07/28/22 02:48 54 L 96 07/28/22 02:49 54 L 102/55 L 07/28/22 02:43 55 L 95 07/28/22 02:42 56 L 103/55 L 07/28/22 02:38 59 L 96 07/28/22 02:37 67 102/55 L 07/28/22 02:30 18 07/28/22 02:30 18 07/28/22 02:30 18 07/28/22 02:30 18 07/28/22 02:33 59 L 100/59 L 95 07/28/22 02:28 55 L 97 07/28/22 02:29 55 L 105/55 L 07/28/22 02:23 96 07/28/22 02:23 64 07/28/22 02:23 60 109/59 L 07/28/22 02:18 96 07/28/22 02:18 60 07/28/22 02:18 58 L 116/57 L 07/28/22 02:13 66 97 07/28/22 02:12 57 L 104/57 L 07/28/22 02:08 60 104/52 L 98 07/28/22 02:00 18 07/28/22 02:00 36.7 C 18 07/28/22 02:03 77 96 07/28/22 02:02 68 114/86 07/28/22 01:58 67 124/58 L 96 07/28/22 01:53 94 07/28/22 01:53 63 07/28/22 01:53 60 116/69 07/28/22 01:48 61 94 07/28/22 01:30 18 07/28/22 01:30 18 07/28/22 01:47 59 L 128/73 07/28/22 01:43 95 07/28/22 01:43 58 L 07/28/22 01:43 60 126/62 07/28/22 01:38 66 97 07/28/22 01:37 66 119/64 07/28/22 01:33 62 95 07/28/22 01:32 58 L 123/71 07/28/22 01:29 55 L 126/75 07/28/22 01:28 54 L 96 07/28/22 01:23 64 93 07/28/22 01:22 63 123/61 07/28/22 01:15 18 07/28/22 01:15 18 07/28/22 01:18 56 L 127/73 96 07/28/22 01:13 63 91 07/28/22 01:14 60 120/59 L 07/28/22 01:08 57 L 92 07/28/22 01:06 65 123/62 87 L 07/28/22 01:05 18 07/28/22 01:05 18 07/28/22 01:03 61 140/72 86 L 07/28/22 01:01 57 L 93 07/28/22 01:00 54 L 127/77 07/28/22 00:58 54 L 126/73 95 07/28/22 00:55 67 62 L 07/28/22 00:56 67 119/72 07/28/22 00:53 92 07/28/22 00:53 62 07/28/22 00:53 62 129/78 07/28/22 00:48 79 51 L 07/28/22 00:43 100 07/28/22 00:43 57 L 07/28/22 00:43 59 L 94 07/28/22 00:38 56 L 96 07/28/22 00:33 58 L 100 07/28/22 00:28 52 L 100 07/28/22 00:23 57 L 100 07/28/22 00:18 59 L 100 07/28/22 00:13 63 98 07/28/22 00:02 55 L 142/84 H 07/27/22 23:00 18 07/27/22 23:00 36.8 C 18 07/27/22 23:05 63 07/27/22 23:05 122/74 07/27/22 22:06 58 L 07/27/22 22:06 129/82 07/27/22 21:05 60 07/27/22 21:05 127/84 07/27/22 20:09 59 L 07/27/22 20:09 133/82 07/27/22 19:00 37.1 C 07/27/22 19:00 37.1 C 07/27/22 19:03 60 07/27/22 19:03 133/78 07/27/22 18:00 18 07/27/22 18:00 18 07/27/22 18:00 65 07/27/22 18:00 126/82 Pain Intensity Head: Pain Intensity: 3 Bilateral Abdomen: Pain Intensity: 0 Transfer of Care Handoff Completed per policy Notes Mental Status: alert / awake / arousable and participated in evaluation Patient Amnestic to Procedure: Yes Nausea / Vomiting: adequately controlled Pain: adequately controlled Airway Patency, RR, SpO2: stable & adequate BP & HR: stable & adequate Hydration State: stable & adequate Neuraxial Anesthesia: was administered and sensory block is resolving Anesthetic Complications: no major complications apparent and Pt Satisfied with anesthetic care Notes: The patient is doing well with no complaints. She is moving both lower extremities and is comfortable.
[2022-07-28] MEDS ORDERED: OXYTOCIN 30 UNITS in LACTATED RINGER'S 1,000 ML IV SCH (18:21)
[2022-07-28] MEDS ORDERED: SENNA 8.6 MG TAB PO PRN (18:21)
[2022-07-28] MEDS ORDERED: LACTATED RINGER'S 1,000 ML IV SCH (18:21)
[2022-07-28] MEDS ORDERED: DIPHTHERIA/TETANUS/PERTUSSIS 0.5 ML SYR/VIAL IM ONE (18:21)
[2022-07-28] MEDS ORDERED: HYDROCORTISONE ACETATE 25 MG SUPP PR PRN (18:21)
[2022-07-28] MEDS ORDERED: MAGNESIUM HYDROXIDE SUSP 30 ML UDC PO PRN (18:21)
[2022-07-28] MEDS ORDERED: BENZOCAINE 20% AER SPR 82.5 GM CAN EXT PRN (18:21)
[2022-07-28] MEDS: AMPICILLIN 2,000 MG in SODIUM CHLOR 0.9% AD-VAN 100 ML IV SCH (18:53)
[2022-07-28] MEDS ORDERED: DEXTROSE 5% IV SCH (19:00)
[2022-07-28] MEDS ORDERED: GENTAMICIN SULFATE IV SCH (19:00)
[2022-07-28] MEDS: KETOROLAC 30 MG/ML VIAL IV PRN (19:03)
[2022-07-28] MEDS: CLINDAMYCIN/D5W 900 MG/50 ML BAG IV SCH (19:42)
[2022-07-28] MEDS: OXYTOCIN 30 UNITS in LACTATED RINGER'S 1,000 ML IV SCH (20:38)
[2022-07-28] MEDS: SIMETHICONE 80 MG CHEW PO SCH (20:59)
[2022-07-28] MEDS ORDERED: DROPERIDOL 5 MG/2 ML VIAL IV STA (22:24)
[2022-07-28] MEDS ORDERED: PROMETHAZINE HCL 12.5 MG in SODIUM CHLORIDE 0.9% 50 ML IV STA (22:38)
[2022-07-29] MEDS: AMPICILLIN 2,000 MG in SODIUM CHLOR 0.9% AD-VAN 100 ML IV SCH ×3 (01:32→12:27)
[2022-07-29] MEDS: CLINDAMYCIN/D5W 900 MG/50 ML BAG IV SCH ×2 (02:08→10:30)
[2022-07-29] MEDS ORDERED: ceFAZolin 2000MG 2,000 MG/15 ML SYR IV SCH (06:00)
[2022-07-29] MEDS ORDERED: CITRIC ACID/SODIUM CITRATE 15 ML UDC PO SCH (06:00)
[2022-07-29 06:47] LABS: Basophils # (auto) 0.03 K/uL (0-0.2); Basophils % (auto) 0.2 %; Eosinophils # (auto) 0.01 K/uL (0-0.50); Eosinophils % (auto) 0.1 %; Hematocrit (blood only) 28.3 % (34.1-44.9); Hemoglobin 9.9 g/dl (12.0-16.0); Immature Granulocytes # (auto) 0.33 K/uL (0.00-0.02); Immature Granulocytes % (auto) 1.9 %; Mean Corpuscular Hemoglobin 29.6 pg (25.0-34.0); Mean Corpuscular Volume 84.7 fL (80.0-100.0); Mean Platelet Volume 10.5 fL (9.4-12.3); Monocytes # (auto) 0.67 K/uL (0.24-0.82); Monocytes % (auto) 3.9 %; Neutrophils % (auto) 82.9 %; Platelet Count 183 K/uL (130-400); RDW Coefficient of Variation 12.4 % (11.5-14.5); RDW Standard Deviation 37.3 fL (36.4-46.3); Red Blood Count 3.34 M/uL (3.93-5.22); White Blood Count 17.34 K/ul (4.8-10.8)
--- NOTE | 2022-07-29 07:20 | Obstetrical Progress Note ---
Date of Service July 29, 2022 Assessment & Plan (1) Preeclampsia: POD#1 s/p PLTCS, doing well. Not yet ambulating. Is urinating with casper - clear yellow. Not hungry yet. Cannot feel passing gas yet. Tolerating sips of fluids. Incision bandaged, bandage is clean/dry. Abdomen is soft, appropriately tender. Later today, will plan to remove casper, ambulate, remove bandage. Subjective Ambulation: ambulating normally Voiding: no voiding problems Diet Tolerance:: regular diet Lochia:: Moderate Review of Systems All systems reviewed & are unremarkable except as noted in HPI & below Physical Exam Constitutional WD/WN, vitals as above no acute distress Respiratory normal respiratory effort Cardiovascular Rate/Rhythm: regular rate and regular rhythm Gastrointestinal (Abdomen) Inspection/Auscultation: abdomen normal to inspection; abdomen not distended Percussion/Palpation: abdomen soft Genitourinary OB Exam Abdomen: + fundal height Fundus: + firm; not tender Results & Data ([place]) Vital Signs (Past 12 Hours) Vital Signs Temp Pulse Pulse Resp BP BP Pulse Ox 07/29/22 06:00 18 95 07/29/22 05:00 18 95 07/29/22 05:00 36.8 C 90 18 126/68 94 07/29/22 04:00 18 96 07/29/22 03:00 18 96 07/29/22 02:00 18 96 07/29/22 01:00 18 94 07/28/22 23:00 18 97 07/29/22 00:00 18 97 07/28/22 22:00 18 100 07/28/22 23:30 36.6 C 65 18 134/82 97 07/28/22 21:00 72 18 148/94 H 98 07/28/22 21:00 18 98 07/28/22 19:40 37.1 C 73 18 138/86 96 07/28/22 19:40 18 96 07/28/22 19:26 81 96 07/28/22 19:21 93 H 124/58 L 95 O2 Del Method 07/29/22 06:00 07/29/22 05:00 07/29/22 05:00 Room Air 07/29/22 04:00 07/29/22 03:00 07/29/22 02:00 07/29/22 01:00 07/28/22 23:00 07/29/22 00:00 07/28/22 22:00 07/28/22 23:30 Room Air 07/28/22 21:00 Room Air 07/28/22 21:00 07/28/22 19:40 Room Air 07/28/22 19:40 07/28/22 19:26 07/28/22 19:21
[2022-07-29] MEDS: DOCUSATE SODIUM 100 MG CAP PO SCH ×3 (08:00→21:03)
[2022-07-29] MEDS: PRENATAL VITAMIN 1 TAB PO SCH (09:16)
[2022-07-29] MEDS: SIMETHICONE 80 MG CHEW PO SCH ×4 (09:17→21:03)
[2022-07-29] MEDS: FERROUS SULFATE 325 MG TAB PO SCH (09:17)
--- NOTE | 2022-07-29 10:10 | Pharmacy Report ---
Pharmacy PK ABX Note - Date of Service July 29, 2022 - Assessment and Plan Assessment 22 year old F receiving ampicillin, gentamicin, and clindamycin for treatment of obstetrical infection. No culture data. WBC - 17, renal function stable (based upon SCr from 07/27). Will obtain repeat labs. Day # 2 of antimicrobial therapy. Plan Gentamicin - gentamicin 390mg IV q24h (5mg/kg) extended interval dosing - Random gentamicin level ordered this AM in error. Will obtain a trough level if therapy continues >72 hours, or sooner if clinically indicated. Pharmacy will continue to follow gentamicin and will adjust dose/frequency as necessary. Thank you.
[2022-07-29] MEDS: OXYTOCIN 30 UNITS in LACTATED RINGER'S 1,000 ML IV SCH (10:31)
[2022-07-29 10:40] LABS: Creatinine Clr Calc Pharmacy 99.2 ml/min; Est GFR (African American) 117.8 ml/min; Est GFR (Non-African American) 101.7 ml/min
[2022-07-29] MEDS: KETOROLAC 30 MG/ML VIAL IV PRN (10:42)
[2022-07-29] MEDS ORDERED: PROMETHAZINE HCL 25 MG in SODIUM CHLORIDE 0.9% 50 ML IV PRN (11:28)
[2022-07-29] MEDS ORDERED: KETOROLAC 30 MG/ML VIAL IV PRN (11:28)
[2022-07-29] MEDS ORDERED: diphenhydrAMINE 50 MG/ML VIAL IV PRN (11:28)
[2022-07-29] MEDS ORDERED: diphenhydrAMINE Capsule 25 MG CAP PO PRN (11:28)
[2022-07-29] MEDS: IBUPROFEN 600 MG TAB PO PRN ×2 (17:01→21:04)
[2022-07-29] MEDS: oxyCODONE/ACETAMINOPHEN 5mg/325mg TAB PO PRN ×2 (17:03→21:03)
[2022-07-29] MEDS ORDERED: GENTAMICIN SULFATE IV SCH (20:00)
[2022-07-29] MEDS ORDERED: DEXTROSE 5% IV SCH (20:00)
[2022-07-29] MEDS ORDERED: bisacodyL 5 MG TABEC PO SCH (20:00)
[2022-07-30] MEDS: oxyCODONE/ACETAMINOPHEN 5mg/325mg TAB PO PRN ×2 (03:10→07:56)
[2022-07-30] MEDS: IBUPROFEN 600 MG TAB PO PRN ×2 (03:11→07:56)
[2022-07-30 06:49] LABS: Hematocrit (blood only) 28.1 % (34.1-44.9); Hemoglobin 9.4 g/dl (12.0-16.0)
--- NOTE | 2022-07-30 07:14 | Obstetrical Progress Note ---
Date of Service July 30, 2022 Assessment & Plan (1) Preeclampsia: POD#2 doing well. Incision CDI. Eating/drinking well. Passing gas. Urinating ok. Minimal bleeding. Pain controlled. Reviewed DC instructions. Followup office in 6w. Rx Percocet #20 tabs sent to [facility]. (2) Delivery by section: Subjective Ambulation: ambulating normally Voiding: no voiding problems Diet Tolerance:: regular diet Lochia:: Moderate Review of Systems All systems reviewed & are unremarkable except as noted in HPI & below Physical Exam Constitutional WD/WN, vitals as above no acute distress Respiratory normal respiratory effort Cardiovascular Rate/Rhythm: regular rate and regular rhythm Gastrointestinal (Abdomen) Inspection/Auscultation: abdomen normal to inspection; abdomen not distended Percussion/Palpation: abdomen soft Genitourinary OB Exam Abdomen: + fundal height Fundus: + firm; not tender Results & Data ([facility]) Vital Signs (Past 12 Hours) Vital Signs Temp Pulse Resp BP Pulse Ox O2 Del Method 07/30/22 03:16 36.8 C 75 16 138/84 97 Room Air 07/30/22 00:00 37.2 C 67 16 121/71 96 Room Air 07/29/22 21:00 36.8 C 69 20 117/75 95 Room Air
--- NOTE | 2022-07-30 07:15 | Discharge Summary ---
Date of Service July 30, 2022 Discharge Data Consultations 07/27/22 11:31 Consult Anesthesiology Stat Procedures Performed Operation Date: 07/28/22 16:00 Actual Procedures p Section in LD; Primary lower uterine transverse section for the of a live boy infant at [facility] Hospital Course (1) Delivery by section: (2) Preeclampsia: Plan Admitted for preeclampsia induction, delivered by section, routine postop recovery, home POD2. Please see notes for further details. Coding Level of Care Code None Diagnoses Delivery by section Preeclampsia O14.90
[2022-07-30] MEDS: FERROUS SULFATE 325 MG TAB PO SCH (07:56)
[2022-07-30] MEDS: PRENATAL VITAMIN 1 TAB PO SCH (07:56)
[2022-07-30] MEDS: DOCUSATE SODIUM 100 MG CAP PO SCH (07:56)
[2022-07-30] MEDS: SIMETHICONE 80 MG CHEW PO SCH (07:56)
[2022-07-30 08:06] LABS: Creatinine Clr Calc Pharmacy 110.1 ml/min; Est GFR (African American) 133.6 ml/min; Est GFR (Non-African American) 115.3 ml/min
[2022-07-30] MEDS ORDERED: MEASLES, MUMPS & RUBELLA VIRUS VIAL SQ ONE (10:33)
[2022-07-30] MEDS ORDERED: bisacodyL 10 MG SUPP PR PRN (17:15)
== END 2022-07-30 13:10 | disposition home or self-care (01) | DRG 786 ==
LOC: OPB 09:43 → 4S1 09:44 → 4E2 07-28 19:54

== ENCOUNTER 2024-08-07 05:33 | Inpatient (IN) ==
--- NOTE | 2024-07-21 11:34 | Anesthesiology Consultation ---
Date of Service July 21, 2024 Assessment & Plan (1) Encounter for pre-operative examination: Chart Review Chart Review: data entry coordinator initiated - BSG to anesthesiologist and OB discretion (gestational DM) -Infectious Disease screening: Per PAT nursing assessment on 07/21/24. No known infectious disease contacts in past 10 days or current infectious disease symptoms. No recent travel outside the country. 07/28/22= Epidural dosed (CSE 07/27/22= at L3-4 with 1 attempt. Tolerated well. Did get called later for redose) History Surgery Operation Date: 08/07/24 07:30 Proposed Procedures p Section in LD (Delivery of Baby Through Abdominal Incision) - Ignacia Cruz MD, FACOG Height/Weight Height: 5 ft Weight: 73.482 kg Allergies Allergy/AdvReac Type Severity Reaction Status Date / Time No Known Allergies Allergy Verified 07/21/24 10:59 Medications Home Medications Medication Instructions Recorded Confirmed Last Taken prenat.vits,en,sja-xrde-kjmnp 1 tab PO DAILY 12/12/21 07/21/24 07/26/22 acetone (urine) test (Ketone Urine #50 ea 01/27/24 07/21/24 Unknown Test strips) blood sugar diagnostic (OneTouch #150 ea 01/27/24 07/21/24 Unknown Verio test strips) blood-glucose sensor (FreeStyle #2 ea 01/27/24 07/21/24 Unknown Elzbieta 3 Sensor device) lancets 33 gauge (OneTouch Delica #150 ea 01/27/24 07/21/24 Unknown Plus Lancet) docusate sodium 100 mg capsule 100 mg PO Q2D 07/21/24 07/21/24 Unknown (Stool Softener) ferrous sulfate 324 mg (65 mg 324 mg PO QAM 07/21/24 07/21/24 Unknown iron) tablet,delayed release Past Medical History Medical History Chronic compartment syndrome of lower extremity s/p bilateral fasciotomy to LEs 2020 Gestational diabetes with first in 2021, and with current (no medications - diet controlled) History of pre-eclampsia (2021) no current issues with current Motion sickness PONV (postoperative nausea and vomiting) severe after in 2022. has used a scope patch in the past after fasciotomy surgery. Past Family History Family History Grandmother (Maternal) Breast cancer Mother S/P hysterectomy Other No family history of adverse response to anesthesia Denies family history of Ovarian cancer Colorectal cancer Past Surgical History Surgical History H/O wisdom tooth extraction History of arthroscopy of right knee History of fasciotomy (2020) bilateral legs History of tonsillectomy and adenoidectomy S/P section x1 (2021) S/P lateral meniscal repair (2019) Social History Smoking Status: Never smoker Do You Dip or Chew Tobacco: No Hx Alcohol Use: No alcohol intake frequency: a few times a week Hx Substance Use: No substance use type: does not use
--- NOTE | 2024-08-06 09:12 | History & Physical Report ---
Date of Service August 06, 2024 Assessment & Plan (1) Gestational diabetes mellitus (GDM) affecting , antepartum: (2) Previous delivery affecting : (3) with 39 completed weeks gestation: Plan Planned repeat c/s. Declines sterilization. The risks of surgery were discussed with the patient including the risks of anesthesia, bleeding requiring transfusion, infection, poor wound healing, urinary retention, damage to surrounding structures including bowels, bladder, vessels, nerves and ureters that may require further surgery, hospitalization or intervention. The other risks of any surgery were discussed including heart attack, blood clots, stroke or . Discussed injury to baby. Discussed hospitalization and stay. Consent reviewed and signed. Questions answered. History of Present Illness Chief Complaint: presents for repeat c/s Primary Care Provider: NO PCP Patient is a 24yowf with iup at 39 3/7 weeks who presents to labor and delivery for elective repeat c/s. She is doing well. has been uncomplicated. and Delivery Plans GDM in prior (on insulin) *Begin monthly Growth US's @24wks Pre-Eclampsia in prior baseline 24 hr urine <92mg @ nob visit baby asa 12 weeks Hep B Non-Immune *Offer vaccination x1 Planning repeat, will schedule at 28wk scheduled for 08/07/[address] Cruz OB Labs: Blood Type O Positive 12/18/23 Antibody Screen NEGATIVE 12/18/23 Hgb 10.3 g/dl (12.0-16.0) L 05/22/24 Hct 30.4 % (37.0-47.0) L 05/22/24 MCV 86.4 fL (80.0-100.0) 12/18/23 Plt Count 305 K/uL (130-400) 12/18/23 Rubella IgG Antibody Immune (Immune) 12/18/23 RPR Nonreactive (Nonreactive) 12/18/23 Treponema pallidum Ab Negative (Negative) 05/22/24 Hep Bs Antigen NON-REACTIVE (NON-REACTIVE) 12/18/23 Hepatitis C Ab (EIA) NON-REACTIVE (NON-REACTIVE) 12/18/23 HIV (1&2) Ag & Ab Conf NON-REACTIVE (NON-REACTIVE) 12/18/23 Glucose 1 Hr 50 gm 158 mg/dl (70-130) H 03/01/22 Maternal Serum AFP 40.8 ng/mL 03/01/22 OB Optional Labs: Chlamydia trachomatis RNA Not Detected (NotDetected) 12/18/23 Neisseria gonorrhoeae RNA Not Detected (NotDetected) 12/18/23 Alpha Fetoprotein Triple Screen SEE NOTE 03/01/22 Labs Reviewed: cf/sma-negative with prior --akh msafp declines smp gbs neg Allergies Allergy/AdvReac Type Severity Reaction Status Date / Time No Known Allergies Allergy Verified 08/06/24 08:56 Home Medications Medication Instructions Recorded Confirmed Type prenat.vits,en,stw-ufqz-wwjyo 1 tab PO DAILY 12/12/21 08/06/24 History acetone (urine) test (Ketone Urine #50 ea 01/27/24 08/06/24 Rx Test strips) blood sugar diagnostic (OneTouch #150 ea 01/27/24 08/06/24 Rx Verio test strips) blood-glucose sensor (FreeStyle #2 ea 01/27/24 08/06/24 Rx Elzbieta 3 Sensor device) lancets 33 gauge (OneTouch Delica #150 ea 01/27/24 08/06/24 Rx Plus Lancet) docusate sodium 100 mg capsule 100 mg PO Q2D 07/21/24 08/06/24 History (Stool Softener) ferrous sulfate 324 mg (65 mg 324 mg PO QAM 07/21/24 08/06/24 History iron) tablet,delayed release Patient History Medical History Motion sickness Gestational diabetes with first in 2021, and with current (no medications - diet controlled) History of pre-eclampsia (2021) no current issues with current PONV (postoperative nausea and vomiting) severe after in 2021. has used a scope patch in the past after fasciotomy surgery. Chronic compartment syndrome of lower extremity s/p bilateral fasciotomy to LEs 2020 Surgical History S/P section x1 (2021) History of fasciotomy (2020) bilateral legs S/P lateral meniscal repair (2018) History of arthroscopy of right knee H/O wisdom tooth extraction History of tonsillectomy and adenoidectomy Family History Grandmother (Maternal) Breast cancer Mother S/P hysterectomy Other No family history of adverse response to anesthesia Denies family history of Ovarian cancer Colorectal cancer Social History Smoking Status: Never smoker Second Hand Exposure: No; Do You Dip or Chew Tobacco: No; Hx Alcohol Use: No Hx Substance Use: No Preferred Language: Moldovan Communication Ability: Effective [employer] Shoes Salesperson Required: No Beliefs That Will Affect Care: None marital status: marital status details: Mitchel (29) [phone] Current Living Situation: Spouse and Family Current Living Situation Comment: lives with spouse and son, 1 cats, 1 dog, spouse to change litter. current occupational status: employed current occupation: [employer] Feels Safe at Home: Yes Assistive Devices: None OB History Past Pregnancies Del. Date GA wks Lbr Lgth wt Sex Type del Anes Place Del Prov ? Comment 07/28/22 37 6lbs 12.2oz M C-Sect ion Epidural [facility] Dr. 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
[2024-08-07] MEDS ORDERED: OXYTOCIN 10 UNITS/ML VIAL ONE (06:16)
[2024-08-07] MEDS ORDERED: DEXAMETHASONE SOD INJ 4 MG/ML VIAL ONE (06:16)
[2024-08-07] MEDS ORDERED: MoRPHine SULFATE PF 1 MG/ML 10 ML AMP/VIAL ONE (06:16)
[2024-08-07] MEDS ORDERED: KETOROLAC 30 MG/ML VIAL ONE (06:16)
[2024-08-07] MEDS ORDERED: fentaNYL citrate PF 100 MCG/2 ML VIAL ONE (06:16)
[2024-08-07] MEDS ORDERED: ONDANSETRON INJ 2 MG/ML 2 ML VIAL ONE ×2 (06:16→07:50)
[2024-08-07] MEDS ORDERED: PHENYLEPHRINE HCL 25 MG/250 ML NSS IV ONE (06:17)
[2024-08-07 06:23] LABS: Hematocrit (blood only) 32.9 % (37.0-47.0); Hemoglobin 11.1 g/dl (12.0-16.0); Mean Corpuscular Hemoglobin 29.6 pg (25.0-34.0); Mean Corpuscular Hgb Conc 33.7 g/dL (32.0-36.0); Mean Corpuscular Volume 87.7 fL (80.0-100.0); Mean Platelet Volume 10.2 fL (9.4-12.4); Platelet Count 292 K/uL (130-400); RDW Coefficient of Variation 13.7 % (11.5-14.5); RDW Standard Deviation 43.2 fL (36.4-46.3); Red Blood Count 3.75 M/uL (4.20-5.40); White Blood Count 10.04 K/ul (4.8-10.8)
[2024-08-07] MEDS: ACETAMINOPHEN 500 MG TAB PO SCH (06:28)
[2024-08-07] MEDS: CITRIC ACID/SODIUM CITRATE 15 ML UDC PO SCH (06:41)
--- NOTE | 2024-08-07 07:09 | History & Physical Bridge Note ---
Date of Service August 07, 2024 History & Physical Bridge Note I have examined the patient, reviewed the History & Physical and in the interval since the performance of the History & Physical I have noted the following changes of clinical significance: no changes noted
[2024-08-07] MEDS: ceFAZolin 2000MG 2,000 MG/15 ML SYR IV SCH (07:24)
[2024-08-07] MEDS ORDERED: NO NARCOTICS OR SEDATIVES SCH (08:00)
[2024-08-07] MEDS ORDERED: ePHEDrine sulfate 50 MG/ML AMP IV PRN (08:00)
[2024-08-07] MEDS ORDERED: NALOXONE HCL 0.4 MG/1 ML VIAL/CARP IV PRN (08:00)
[2024-08-07] MEDS ORDERED: NALOXONE HCL 0.08 MG in SYRINGE 1.8 ML IV PRN (08:00)
[2024-08-07] MEDS ORDERED: diphenhydrAMINE 50 MG/ML VIAL IV PRN (08:00)
[2024-08-07] MEDS ORDERED: NALOXONE HCL 1 MG in SODIUM CHLORIDE 0.9% 1,000 ML IV PRN (08:00)
[2024-08-07] MEDS ORDERED: DC INTRASPINAL MORPHINE SCH (08:00)
[2024-08-07] MEDS ORDERED: PROMETHAZINE 6.25 MG/50.25 ML BAG IV PRN (08:00)
[2024-08-07] MEDS ORDERED: PHENYLEPHRINE 100MCG/ML 5ML SYR ONE (08:04)
[2024-08-07] MEDS: OXYTOCIN 20 UNITS/LR 1,002 ML IV SCH (08:40)
--- NOTE | 2024-08-07 08:51 | Operative Report ---
PG Post Operative Report Pre & Post Diagnosis Operation Date: 08/07/24 07:30 Pre-Op Diagnosis: 1) Gestational diabetes mellitus (GDM) affecting , antepartum: (2) Previous delivery affecting : (3) with 39 completed weeks gestation: Post-Op Diagnosis: Same;Delivery of a live male child at 0756 I identified the patient and participated in the time-out.: Yes Procedure Operation Date: 08/07/24 07:30 Actual Procedures p Repeat lower transverse Section - Ignacia Cruz MD, FACOG Surgeon Ignacia Cruz MD, FACOG Rat Breeder Viviane Hancock, SKILLED LABOR[facility], MS[facility] Estimated Blood Loss 376 (QBL) Findings Consistent with Post-Op Diagnosis viable male , apgars 7/9, thick adhesion of the anterior abd wall to the anterior uterine wall. nl ovs and tubes , Fluids 1000cc Specimens placenta Drains casper Anesthesia Type Spinal Complications none Disposition Accompanied Patient To Recovery: No Disposition: L&D Indications Patient is a 24yowf with iup at 39 weeks who desires repeat c/s Description of Procedure The patient was taken to the operating room where she was identified verbally and by bracelet. She was seated on the operating table where a spinal anesthetic was placed by anesthesia. She was then placed in the supine position with a leftward tilt. A Casper catheter was placed sterilely. the patient was prepped and draped in a normal standard fashion. the anesthetic was tested and found to be adequate. A time-out was held, identifying correct patient, procedure, positioning and preoperative antibiotics. There were no concerns. A Pfannenstiel skin incision was made with a knife and taken down to the underlying layer of fascia with the knife and Bovie electrocautery. Bleeding was attended to with the Bovie. The fascia was incised in the midline with the knife and taken out laterally with scissors. The superior edge of the fascial incision was grasped, elevated and the underlying layer of rectus muscle was taken off bluntly and with scissors. In a similar fashion, the inferior edge of the fascial incision was grasped, elevated and the underlying layer of rectus muscle was taken off bluntly and with scissors. WAs able to enter the peritoneum sharply. We then encountered a thick adhesion of the ant wall to the ant uterus. This was taken down sharply with scissors. A finger was able to be placed underneath this and the bladder was free from this. The incision was then stretched. The bladder blade was placed. The vesicouterine peritoneum was identified, entered with scissors and taken out laterally with scissors. The bladder flap was created digitally A hysterotomy incision was scored with a knife and the incision was stretched superiorly and inferiorly with the brine process operator's fingers. The operators hand was placed into the incision and the head was not able to be delivered. A vacuum was called for and placed time two with a pop off x 2. The rectus muscles were then cut sharply to make more room. A new vacuum was called for, applied and then the head was delivered. The nose and mouth were bulb suctioned. No nuchal cord. The rest of the baby was then delivered. The nose and mouth were again bulb suctioned. The cord was clamped and cut and the was then handed off to the awaiting behavioral health rn for drying and attention. Cord blood and segment were obtained. The placenta was expressed. The uterus was exteriorized and cleared of all clot and debris with moistened laparotomy sponges. The hysterotomy incision was repaired in two layers, the first in a running locked layer, the second in an imbricating layer. Hemostasis was noted to be good. Posterior cul-de-sac was irrigated and cleared of all clot and debris. The hysterotomy incision was again inspected and one suture was needed for hemostasis. the uterus was reinteriorized. Hysterotomy incision was again inspected and found to be hemostatic. The fascia was then reapproximated with 0 Vicryl starting at the edges and meeting in the midline. The subcuticular tissues were copiously irrigated and bleeding was attended to with cautery. The skin was then closed with 4-0 Vicryl in a subcuticular fashion. All sponge, lap and needle counts were correct x 2. The patient was taken to recovery in stable condition. I attest to the content of the Intraoperative Record and any orders documented therein. Any exceptions are noted below. OB Procedure Charges 31842
--- NOTE | 2024-08-07 09:01 | Anesthesiology Progress Note ---
Date of Service August 07, 2024 Anesthesia Post Procedure Vital Signs Vital Signs: Temp Pulse Resp BP 08/07/24 08:51 70 08/07/24 08:51 125/58 L 08/07/24 08:41 84 08/07/24 08:41 132/61 08/07/24 07:11 72 08/07/24 07:11 109/63 08/07/24 05:47 71 121/63 08/07/24 05:45 98.6 F 18 Transfer of Care Handoff Completed per policy Notes Mental Status: alert / awake / arousable and participated in evaluation Patient Amnestic to Procedure: No Nausea / Vomiting: adequately controlled Pain: adequately controlled Airway Patency, RR, SpO2: stable & adequate BP & HR: stable & adequate Hydration State: stable & adequate Neuraxial Anesthesia: was administered and sensory block is resolving Anesthetic Complications: no major complications apparent and Pt Satisfied with anesthetic care
[2024-08-07] MEDS ORDERED: HYDROCORTISONE ACETATE 25 MG SUPP PR PRN (09:11)
[2024-08-07] MEDS ORDERED: SENNA 8.6 MG TAB PO PRN (09:11)
[2024-08-07] MEDS ORDERED: CALCIUM CARBONATE 500 MG CHEWABLE TAB PO PRN (09:11)
[2024-08-07] MEDS: SODIUM CHLORIDE 0.9% 1,000 ML IV SCH ×2 (09:11)
[2024-08-07] MEDS ORDERED: MAGNESIUM HYDROXIDE SUSP 30 ML UDC PO PRN (09:11)
[2024-08-07] MEDS ORDERED: BENZOCAINE 20% SPRY 85 APPLN/85 GM CAN EXT PRN (09:11)
[2024-08-07] MEDS: ONDANSETRON INJ 2 MG/ML 2 ML VIAL IV PRN (09:43)
[2024-08-07] MEDS: KETOROLAC 30 MG/ML VIAL IV SCH (14:25)
[2024-08-07] MEDS: SIMETHICONE 80 MG CHEW PO SCH (15:49)
[2024-08-07] MEDS: NALBUPHINE HCL INJ 10 MG/ML AMP IV PRN (18:52)
[2024-08-07] MEDS: ACETAMINOPHEN 325 MG TAB PO SCH (20:58)
[2024-08-07] MEDS: DOCUSATE SODIUM 100 MG CAP PO SCH (20:58)
[2024-08-08] MEDS: MoRPHine SULFATE PF 1 MG/ML 10 ML AMP/VIAL INT SPINAL ONE (01:11)
[2024-08-08] MEDS: DIPHTHER/TETAN/PERTUS Vaccine (Tdap, Adol/Adult) 0.5mL IM ONE (01:11)
[2024-08-08] MEDS: SODIUM CHLORIDE 0.9% 1,000 ML IV SCH (01:11)
[2024-08-08] MEDS ORDERED: oxyCODONE HCL IR 5 MG TAB (IMMEDIATE RELEASE) PO PRN (02:00)
[2024-08-08] MEDS ORDERED: diphenhydrAMINE 50 MG/ML VIAL IV PRN (02:00)
[2024-08-08] MEDS ORDERED: PROMETHAZINE 12.5 MG/50.5 ML BAG IV PRN (02:00)
[2024-08-08] MEDS ORDERED: diphenhydrAMINE Capsule 25 MG CAP PO PRN (02:00)
[2024-08-08] MEDS ORDERED: ONDANSETRON INJ 2 MG/ML 2 ML VIAL IV PRN (02:00)
[2024-08-08] MEDS ORDERED: HYDROmorphone INJ 0.5 MG/0.5 ML SYR IV PRN (02:00)
[2024-08-08 07:53] LABS: Basophils # (auto) 0.02 K/uL (0.00-0.20); Basophils % (auto) 0.2 %; Eosinophils # (auto) 0.08 K/uL (0.00-0.50); Eosinophils % (auto) 0.6 %; Hematocrit (blood only) 27.2 % (37.0-47.0); Hemoglobin 9.2 g/dl (12.0-16.0); Immature Granulocytes # (auto) 0.06 K/uL (0.01-0.20); Immature Granulocytes % (auto) 0.5 %; Lymphocytes # (auto) 2.49 K/uL (1.20-3.40); Lymphocytes % (auto) 20.2 %; Mean Corpuscular Hemoglobin 30.2 pg (25.0-34.0); Mean Corpuscular Hgb Conc 33.8 g/dL (32.0-36.0); Mean Corpuscular Volume 89.2 fL (80.0-100.0); Mean Platelet Volume 10.4 fL (9.4-12.4); Monocytes # (auto) 0.79 K/uL (0.11-0.59); Monocytes % (auto) 6.4 %; Neutrophils # (auto) 8.91 K/uL (1.40-6.50); Neutrophils % (auto) 72.1 %; Platelet Count 246 K/uL (130-400); RDW Coefficient of Variation 13.7 % (11.5-14.5); RDW Standard Deviation 44.9 fL (36.4-46.3); Red Blood Count 3.05 M/uL (4.20-5.40); White Blood Count 12.35 K/ul (4.8-10.8)
[2024-08-08] MEDS: FERROUS SULFATE 325 MG TAB PO SCH (08:18)
[2024-08-08] MEDS: PRENATAL VITAMIN 1 TAB PO SCH (08:18)
--- NOTE | 2024-08-08 08:22 | Obstetrical Progress Note ---
Date of Service August 08, 2024 Assessment & Plan (1) Delivery by section using transverse incision of lower segment of uterus: Plan Both mom and baby doing well. Continue care as per protocol. Encouraged nursing with mother's milk. Encouraged ambulation. Encouraged deep breathing. Can go home tomorrow if they feel ready. Admission and Anticipated Discharge Date Admission Date: August 07, 2024 Supervising Physician Co-Signing Physician Notes Resident Physician Supervision Note: I interviewed and examined the patient. Discussed with Dr. Soto and agree with findings and plan as documented in the note. Any exceptions or clarifications are listed here: Doing well. n/v yesterday has resolved. Feels good. Routine ppd 1 care. Documented By: Ignacia Cruz MD, FACOG Subjective 24 years week at 39 WGA #1POD following delivery No active complains Both mom and baby doing well. Mom Lying comfortable on bed. Pain: Mild, intermittent, manageable on painkillers. Lochia: Moderate Diet: Regular OB diet Gas: Not aware of passing, but no abdominal distension Peeing: Passed Urine after casper's removal Ambulation: to Bathroom/ Corridor without any complication Answered her queries. Review of Systems Review of Systems: No SOB, chest pain, leg pain No dizziness, headache, palpitation No Blurring of vision , fever Physical Exam Physical Exam: General: Alert and oriented. No acute distress. CVS: S1 S2+ No murmurs, regular rhythm. Respiratory: CTA bilaterally. No rhonchi, wheezes, or crackles. No increased work of breathing. Abdomen: Bowel sound +. Soft, nontender Uterus: Fundus firm and palpable few cm below the umbilicus. Incision site looks healthy: Dry, No swelling, Erythema Lower extremities: No LE edema. No deep calf pain. Results & Data Vital Signs (Past 12 Hours) Vital Signs Temp Pulse Resp BP Pulse Ox O2 Del Method 08/08/24 07:34 37.2 C 83 16 100/63 97 Room Air 08/08/24 03:10 36.9 C 74 18 97/58 L 96 Room Air 08/08/24 02:29 18 99 08/08/24 01:45 18 98 08/08/24 00:45 18 97 08/07/24 23:45 16 98 08/07/24 22:46 37 C 82 16 93/54 L 96 Room Air 08/07/24 22:44 20 97 08/07/24 21:45 20 97 08/07/24 20:45 20 98
[2024-08-08] MEDS ORDERED: KETOROLAC 30 MG/ML VIAL IV PRN (12:00)
[2024-08-08] MEDS: KETOROLAC 30 MG/ML VIAL ONE (13:04)
[2024-08-08] MEDS: IBUPROFEN 600 MG TAB PO SCH (14:17)
[2024-08-08] MEDS: OXYTOCIN 20 UNITS/1002ML LR IV ONE (16:56)
[2024-08-08] MEDS: bisacodyL 5 MG TABEC PO SCH (21:10)
[2024-08-09 06:45] LABS: Hematocrit (blood only) 26.3 % (37.0-47.0); Hemoglobin 8.6 g/dl (12.0-16.0)
[2024-08-09] MEDS ORDERED: bisacodyL 10 MG SUPP PR PRN (08:36)
[2024-08-09] MEDS: IBUPROFEN 600 MG TAB PO ONE (08:58)
[2024-08-09 09:34] VITALS: BP 117/73; RESP 20; TEMP 98.6; O2SAT 98
--- NOTE | 2024-08-09 10:08 | Obstetrical Progress Note ---
Date of Service August 09, 2024 Assessment & Plan (1) care following delivery: Plan doing well pp. stable. hgb reviewed. breast feeding, rhpos, ri. ready for dc home. instructions reviewed. f/u 6wk planned. discussed percocet script and at first she does not want to send but then we agree to send 7 tabs and she does not have to strip picker from pharmacy if does not need. checked on pa pdmp, no issues. Day #:: 2 Subjective Ambulation: ambulating normally Voiding: no voiding problems Passing Gas:: Yes Diet Tolerance:: regular diet Lochia:: Small Feeding Type:: breast feeding no pain concerns, has not use percocet had some gi gas pain yesterday but helped by simethicone Constitutional: + as per Subjective / HPI Physical Exam Constitutional WD/WN, vitals as above Respiratory normal respiratory effort, lungs clear to auscultation Cardiovascular Rate/Rhythm: regular rate and regular rhythm Gastrointestinal (Abdomen) Inspection/Auscultation: abdomen normal to inspection and + abdominal surgical incision (c/d/i, steris) Percussion/Palpation: abdomen soft fundus firm 2 cm below umbilicus Musculoskeletal nt calves no edema Neurologic grossly normal Psychiatric A+Ox3, euthymic affect Results & Data Vital Signs (Past 12 Hours) Vital Signs Temp Pulse Resp BP Pulse Ox O2 Del Method 08/09/24 08:40 98.6 F 76 20 117/73 98 Room Air 08/08/24 23:55 98.4 F 68 18 108/65 99 Room Air
[2024-08-09 10:14] VITALS: PULSE 84
[2024-08-09] MEDS ORDERED: IBUPROFEN 600 MG TAB PO PRN (12:00)
[2024-08-09] MEDS ORDERED: ACETAMINOPHEN 325 MG TAB PO PRN (18:00)
--- NOTE | 2024-08-10 11:57 | Discharge Summary ---
Date of Service August 10, 2024 Admission HPI Per Admitting Provider Patient is a 24yowf with iup at 39 3/7 weeks who presents to labor and delivery for elective repeat c/s. She is doing well. has been uncomplicated. and Delivery Plans GDM in prior (on insulin) *Begin monthly Growth US's @24wks Pre-Eclampsia in prior baseline 24 hr urine <92mg @ nob visit baby asa 12 weeks Hep B Non-Immune *Offer vaccination x1 Planning repeat, will schedule at 28wk scheduled for 08/07/[address] Cruz OB Labs: Blood Type O Positive 12/18/23 Antibody Screen NEGATIVE 12/18/23 Hgb 10.3 g/dl (12.0-16.0) L 05/22/24 Hct 30.4 % (37.0-47.0) L 05/22/24 MCV 86.4 fL (80.0-100.0) 12/18/23 Plt Count 305 K/uL (130-400) 12/18/23 Rubella IgG Antibody Immune (Immune) 12/18/23 RPR Nonreactive (Nonreactive) 12/18/23 Treponema pallidum Ab Negative (Negative) 05/22/24 Hep Bs Antigen NON-REACTIVE (NON-REACTIVE) 12/18/23 Hepatitis C Ab (EIA) NON-REACTIVE (NON-REACTIVE) 12/18/23 HIV (1&2) Ag & Ab Conf NON-REACTIVE (NON-REACTIVE) 12/18/23 Glucose 1 Hr 50 gm 158 mg/dl (70-130) H 03/01/22 Maternal Serum AFP 40.8 ng/mL 03/01/22 OB Optional Labs: Chlamydia trachomatis RNA Not Detected (NotDetected) 12/18/23 Neisseria gonorrhoeae RNA Not Detected (NotDetected) 12/18/23 Alpha Fetoprotein Triple Screen SEE NOTE 03/01/22 Labs Reviewed: cf/sma-negative with prior --akh msafp declines smp gbs neg Discharge Data Consultations 08/07/24 05:38 Consult Anesthesiology Stat Procedures Performed Operation Date: 08/07/24 07:30 Actual Procedures p Section - Ignacia Cruz MD, FACOG Hospital Course (1) Previous delivery affecting : (2) with 39 completed weeks gestation: Plan Patient underwent a repeat ltcs. There were thick adhesions of the anterior uterine call to the ant abdominal wall. QBL--376cc. Post op course uncomplicated--tolerated a regular, diet ambulated, voided after Quintero out, tolerated po pain medications. WAs d/c home on postop day 2. discharge h/h 8.6/26.3. f/u in the office in 6 weeks for postop/. INstructions reviewed. Coding Level of Care Code None Diagnoses Previous delivery affecting O34.219 with 39 completed weeks gestation Z3A.39
== END 2024-08-09 11:18 | disposition home or self-care (01) | DRG 788 ==
LOC: 4S1 05:33 → EDSTATUS 07:30 → 4E2 13:15